=== PATIENT | female | born 1990 | race Caucasian/White ===

== ENCOUNTER 2018-05-28 10:45 | Emergency (ER) | payer SELFPAY ==
[2018-05-28] MEDS ORDERED: NA CHLORIDE 0.9% 1,000 ML ONE (11:25)
[2018-05-28 11:49] LABS: Absolute Lymphocytes (CBC) 0.7 K/uL (0.7-4.9); Absolute Monocytes 0.4 K/uL (0.1-1.3); Absolute Neutrophil 3.9 K/uL (1.8-8.0); Basophils % 0.5 % (0-1.3); Eosinophils % 2.8 % (0-4.4); Hematocrit 38.2 % (36.0-45.0); Lymphocytes % 12.8 % (15.3-44.8); RBC Red Blood Cell Count 4.35 M/uL (3.86-4.86)
[2018-05-28 11:50] LABS: Specific Gravity >= 1.030 (1.005-1.030); Urine Appearance CLOUDY; Urine Blood 3+ (NEG); Urine Color DK YELLOW; Urine Glucose NEGATIVE (NEG); Urine Protein 2+ (NEG); Urine Specific Gravity >=1.030 (1.005-1.030)
[2018-05-28 11:59] LABS: ALT/SGPT 90 U/L (12-78); AST/SGOT 58 U/L (15-37); Albumin 3.9 g/dL (3.4-5.0); Alkaline Phosphatase 59 U/L (45-117); BUN Blood Urea Nitrogen 9 mg/dL (7-18); Bicarbonate 25 mmol/L (21-32); Bilirubin Direct < 0.1 mg/dL (0-0.2); Bilirubin Total 0.3 mg/dL (0.2-1.0); Glucose Level 91 mg/dL (74-106); Lipase 89 U/L (73-393); Protein, Total 8.4 g/dL (6.4-8.2); Sodium Level 140 mmol/L (136-145)
[2018-05-28 12:00] LABS: Urine Bacteria >50 /HPF (<20); Urine Bilirubin 1+ (NEG); Urine Microscopic Reflex ORDER UMIC; Urine RBC >50 /HPF (NONE SEEN)
[2018-05-28 12:01] LABS: Urine Culture Reflex Order NOT NEEDED
--- NOTE | 2018-05-28 12:22 | ER ---
Nurse's Notes [facility] Name: Elin Dubose Age: 27 yrs Sex: Female : 1990 Arrival Date: 05/28/2018 Time: 10:48 Bed 13 Private MD: Diagnosis: Weakness;Syncope and collapse-near;Diarrhea, unspecified;Influenza due to other identified influenza virus-influenza B Presentation: 05/28 10:42 Presenting complaint: EMS states: Pt. was at work when she became dizzy. C/o rb1 generalized weakness and suprapubic pain pain 5/10. Reports that the pt. started her menstrual cycle yesterday. was treated for the flu recently. Vital signs are stable, BGL 127. No medical history. Had gall bladder removed. Transition of care: patient was not received from another setting of care. Onset of symptoms was May 28, 2018. Risk Assessment: Do you want to hurt yourself or someone else? Patient reports no desire to harm self or others. Initial Sepsis Screen: Does the patient meet any 2 criteria? No. Patient's initial sepsis screen is negative. Does the patient have a suspected source of infection? No. Patient's initial sepsis screen is negative. Care prior to arrival: None. 10:42 Method Of Arrival: EMS: [facility] 10:42 Acuity: SHEILA 3 rb1 Triage Assessment: 10:42 General: Appears in no apparent distress. comfortable, Behavior is calm, cooperative, rb1 Denies fever. Pain: Complains of pain in suprapubic area Pain currently is 5 out of 10 on a pain scale. Neuro: Level of Consciousness is awake, alert, obeys commands, Oriented to person, place, time, situation. Cardiovascular: Capillary refill < 3 seconds is brisk in bilateral fingers. Respiratory: Reports cough that is non-productive, Airway is patent Respiratory effort is even, unlabored, Respiratory pattern is regular, symmetrical. GI: Reports diarrhea, nausea. : No signs and/or symptoms were reported regarding the genitourinary system. Derm: Skin is pink, warm \T\ dry. Musculoskeletal: Range of motion: intact in all extremities. 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 - Social history:: Smoking status: Patient/guardian denies using tobacco. - Ebola Screening: : Patient negative for fever greater than or equal to 101.5 degrees Fahrenheit, and additional compatible Ebola Virus Disease symptoms. - Family history:: not pertinent. Screenin:42 Abuse screen: Denies threats or abuse. Nutritional screening: No deficits noted. rb1 10:42 Tuberculosis screening: No symptoms or risk factors identified. Fall Risk None rb1 identified. Assessment: 10:42 General: See triage assessment. rb1 11:42 Reassessment: Patient appears in no apparent distress at this time. No changes from rb1 previously documented assessment. Family at bedside. 12:42 Reassessment: Patient appears in no apparent distress at this time. Patient and/or rb1 family updated on plan of care and expected duration. Pain level reassessed. Patient is alert, oriented x 3, equal unlabored respirations, skin warm/dry/pink. Vital Signs: 10:42 BP 117 / 70; Pulse 70; Resp 16; Temp 98.5(O); Pulse Ox 100% on R/A; Weight 108.86 kg rb1 (R); Height 5 ft. 4 in. (162.56 cm) (R); Pain 5/10; 11:42 BP 113 / 62; Pulse 66; Resp 19; Pulse Ox 100% on R/A; rb1 12:42 BP 116 / 73; Pulse 76; Resp 17; Pulse Ox 98% on R/A; rb1 10:42 Body Mass Index 41.20 (108.86 kg, 162.56 cm) [facility] ED Course: 10:42 Arm band placed on right wrist. rb1 10:42 Patient has correct armband on for positive identification. Bed in low position. Call rb1 light in reach. Side rails up X 1. Pulse ox on. NIBP on. Warm blanket given. 10:48 Patient arrived in ED. rb1 10:48 Eldon Lambert MD is Attending Physician. [facility] 10:53 Triage completed. rb1 11:00 Rajni Olea, RN is Primary Nurse. rb1 11:15 Urine collected: clean catch specimen, blood tinged. dh3 11:18 EKG done, by ED staff, reviewed by Eldon Lambert MD. 3 11:25 Inserted saline lock: 22 gauge in right antecubital area, using aseptic technique. rb1 Blood collected. 11:56 Flu Sent. rb1 13:15 No provider procedures requiring assistance completed. IV discontinued, intact, rb1 bleeding controlled, No redness/swelling at site. Pressure dressing applied. Administered Medications: 11:27 Drug: NS 0.9% 1000 ml Route: IV; Rate: 1 bolus; Site: right antecubital; rb1 12:33 Follow up: IV Status: Completed infusion rb1 13:08 Drug: Zofran 4 mg Route: IVP; Site: right antecubital; rb1 13:14 Follow up: Response: Medication administered at discharge. rb1 13:08 Drug: Tamiflu 75 mg Route: PO; rb1 13:13 Follow up: Response: Medication administered at discharge. rb1 Outcome: 12:22 Discharge ordered by . saji 13:15 Discharged to home ambulatory, with family. rb1 13:15 Condition: stable 13:15 Discharge instructions given to patient, Instructed on discharge instructions, follow up and referral plans. medication usage, Demonstrated understanding of instructions, follow-up care, medications, Prescriptions given X 2. 13:16 Patient left the ED. rb1 Addendum: 05/31/2018 10:31 Addendum: Culture Results: Positive urine culture. No further action required. Other: s s OK per EMILEE Dykes. NO URINARY COMPLAINTS. Signatures: Eldon Lambert MD MD cha Smirch, Shelby RN RN Rajni Moreland RN RN [facility] Merna Harris [facility]
--- NOTE | 2018-05-28 12:23 | EDPHYS ---
Physician Documentation [facility] Name: Elin Dubose Age: 27 yrs Sex: Female : 1990 Arrival Date: 05/28/2018 Time: 10:48 Bed 13 Private MD: ED Physician Eldon Lambert HPI: 05/28 10:56 This 27 yrs old Female presents to ER via EMS with complaints of General saji Weakness. 10:56 The patient presents to the emergency department with nausea, diarrhea. Onset: The saji symptoms/episode began/occurred just prior to arrival, this morning. Possible causes: unknown. The symptoms are aggravated by nothing. The symptoms are alleviated by nothing. The patient has experienced near-syncope, almost passed out, felt dizzy, felt generally weak. Associated signs and symptoms: Pertinent positives: diarrhea. 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 - Social history:: Smoking status: Patient/guardian denies using tobacco. - Ebola Screening: : Patient negative for fever greater than or equal to 101.5 degrees Fahrenheit, and additional compatible Ebola Virus Disease symptoms. - Family history:: not pertinent. ROS: 10:56 Constitutional: Negative for fever, chills, and weight loss, Eyes: Negative for injury, saji pain, redness, and discharge, ENT: Negative for injury, pain, and discharge, Neck: Negative for injury, pain, and swelling, Cardiovascular: Negative for chest pain, palpitations, and edema, Respiratory: Negative for shortness of breath, cough, wheezing, and pleuritic chest pain, Back: Negative for injury and pain, : Negative for injury, bleeding, discharge, and swelling, MS/Extremity: Negative for injury and deformity, Skin: Negative for injury, rash, and discoloration, Psych: Negative for depression, anxiety, suicide ideation, homicidal ideation, and hallucinations, Allergy/Immunology: Negative for hives, rash, and allergies, Endocrine: Negative for neck swelling, polydipsia, polyuria, polyphagia, and marked weight changes, Hematologic/Lymphatic: Negative for swollen nodes, abnormal bleeding, and unusual bruising. 10:56 Abdomen/GI: Positive for diarrhea, abdominal cramps. 10:56 Neuro: Positive for near syncope, weakness. Exam: 10:56 Constitutional: This is a well developed, well nourished patient who is awake, alert, saji and in no acute distress. Head/Face: Normocephalic, atraumatic. Eyes: Pupils equal round and reactive to light, extra-ocular motions intact. Lids and lashes normal. Conjunctiva and sclera are non-icteric and not injected. Cornea within normal limits. Periorbital areas with no swelling, redness, or edema. ENT: Nares patent. No nasal discharge, no septal abnormalities noted. Tympanic membranes are normal and external auditory canals are clear. Oropharynx with no redness, swelling, or masses, exudates, or evidence of obstruction, uvula midline. Mucous membranes moist. Neck: Trachea midline, no thyromegaly or masses palpated, and no cervical lymphadenopathy. Supple, full range of motion without nuchal rigidity, or vertebral point tenderness. No Meningismus. Chest/axilla: Normal chest wall appearance and motion. Nontender with no deformity. No lesions are appreciated. Cardiovascular: Regular rate and rhythm with a normal S1 and S2. No gallops, murmurs, or rubs. Normal PMI, no JVD. No pulse deficits. Respiratory: Lungs have equal breath sounds bilaterally, clear to auscultation and percussion. No rales, rhonchi or wheezes noted. No increased work of breathing, no retractions or nasal flaring. Back: No spinal tenderness. No costovertebral tenderness. Full range of motion. Skin: Warm, dry with normal turgor. Normal color with no rashes, no lesions, and no evidence of cellulitis. MS/ Extremity: Pulses equal, no cyanosis. Neurovascular intact. Full, normal range of motion. Neuro: Awake and alert, GCS 15, oriented to person, place, time, and situation. Cranial nerves II-XII grossly intact. Motor strength 5/5 in all extremities. Sensory grossly intact. Cerebellar exam normal. Normal gait. Psych: Awake, alert, with orientation to person, place and time. Behavior, mood, and affect are within normal limits. 10:56 Abdomen/GI: Inspection: distension, Bowel sounds: normal, Palpation: nontender, Liver: no appreciated palpable abnormalities, Hernia: not appreciated. Vital Signs: 10:42 BP 117 / 70; Pulse 70; Resp 16; Temp 98.5(O); Pulse Ox 100% on R/A; Weight 108.86 kg rb1 (R); Height 5 ft. 4 in. (162.56 cm) (R); Pain 5/10; 11:42 BP 113 / 62; Pulse 66; Resp 19; Pulse Ox 100% on R/A; rb1 12:42 BP 116 / 73; Pulse 76; Resp 17; Pulse Ox 98% on R/A; rb1 10:42 Body Mass Index 41.20 (108.86 kg, 162.56 cm) rb1 MDM: 10:48 Patient medically screened. [facility] 11:01 Data reviewed: vital signs, nurses notes, lab test result(s), EKG. [facility] 05/28 10:53 Order name: Basic Metabolic Panel; Complete Time: 12:20 [facility] 05/28 10:53 Order name: CBC with Diff; Complete Time: 12:20 [facility] 05/28 10:53 Order name: Creatinine for Radiology; Complete Time: 12:20 [facility] 05/28 10:53 Order name: Hepatic Function; Complete Time: 12:20 [facility] 05/28 10:53 Order name: Lipase; Complete Time: 12:20 [facility] 05/28 10:53 Order name: Urine Culture [facility] 05/28 10:53 Order name: EKG; Complete Time: 10:54 [facility] 05/28 11:24 Order name: Urinalysis; Complete Time: 12:20 [facility] 05/28 11:31 Order name: Flu; Complete Time: 12:20 [facility] 05/28 11:36 Order name: Test, Urine; Complete Time: 12:20 [facility] 05/28 12:01 Order name: Urine Microscopic Only; Complete Time: 12:20 [facility] 05/28 10:53 Order name: IV Saline Lock; Complete Time: 11:36 [facility] 05/28 10:53 Order name: Labs collected and sent; Complete Time: 11:36 [facility] 05/28 10:53 Order name: EKG - Nurse/Tech; Complete Time: 11:35 [facility] Administered Medications: 11:27 Drug: NS 0.9% 1000 ml Route: IV; Rate: 1 bolus; Site: right antecubital; rb1 12:33 Follow up: IV Status: Completed infusion rb1 13:08 Drug: Zofran 4 mg Route: IVP; Site: right antecubital; rb1 13:14 Follow up: Response: Medication administered at discharge. rb1 13:08 Drug: Tamiflu 75 mg Route: PO; rb1 13:13 Follow up: Response: Medication administered at discharge. rb1 Disposition: 05/28/18 12:22 Discharged to Home. Impression: Weakness, Syncope and collapse - near, Diarrhea, unspecified, Influenza due to other identified influenza virus - influenza B. - Condition is Stable. - Discharge Instructions: Diarrhea, Adult, Syncope, Weakness, Near-Syncope, Jubt-ef-Vuim, Diarrhea, Adult, Gfcv-ac-Nnyq, Syncope, Xcjl-po-Turv, Weakness, Lkcx-bb-Jjve. - Prescriptions for Zofran 4 mg Oral Tablet - take 1 tablet by ORAL route every 12 hours As needed; 20 tablet. Tamiflu 75 mg Oral Capsule - take 1 tablet by ORAL route every 12 hours for 5 days; 10 tablet. - Medication Reconciliation Form, Thank You Letter, Antibiotic Education, Prescription Opioid Use, Work release form form. - Follow up: Private Physician; When: 2 - 3 days; Reason: Recheck today's complaints, Continuance of care, Re-evaluation by your physician. Signatures: Dispatcher [employer] EDEldon Alexander MD MD cha Barber, Rebecca RN RN rb1 Corrections: (The following items were deleted from the chart) 13:16 12:22 05/28/2018 12:22 Discharged to Home. Impression: Weakness; Syncope and collapse - rb1 near; Diarrhea, unspecified; Influenza due to other identified influenza virus - influenza B. Condition is Stable. Discharge Instructions: Diarrhea, Adult, Syncope, Weakness, Diarrhea, Adult, Gdca-bg-Cchm, Syncope, Ofnb-os-Ywhw, Weakness, Ncln-jc-Abcq, Near-Syncope, [place]-ba-Yzeq. Prescriptions for Zofran 4 mg Oral Tablet - take 1 tablet by ORAL route every 12 hours As needed; 20 tablet. and Forms are Medication Reconciliation Form, Thank You Letter, Antibiotic Education, Prescription Opioid Use. Follow up: Private Physician; When: 2 - 3 days; Reason: Recheck today's complaints, Continuance of care, Re-evaluation by your physician. saji
[2018-05-28] MEDS ORDERED: OSELTAMIVIR 75 MG CAP ONE (13:12)
[2018-05-28] MEDS ORDERED: ONDANSETRON 4 MG/2 ML VIAL ONE (13:12)
[2018-05-28 13:22] VITALS: BP 116/73; O2SAT 98
--- NOTE | 2018-05-29 07:47 | EKG ---
Test Date: 2018-05-28 Test Time: 11:18:55 Reducing Salon Attendant: KHADRA MEASUREMENT RESULTS: Intervals: Rate: 59 ID: [id number] QRSD: 88 QT: 382 QTc: 378 Orange: P: 36 ID: [id number] QRS: 56 T: 30 INTERPRETIVE STATEMENTS: Sinus bradycardia Otherwise normal ECG Compared to ECG 10/21/2010 16:19:19 Sinus rhythm no longer present Sinus arrhythmia no longer present Short ID interval no longer present Electronically Signed On 05-29-18 07:47:00 CDT by Daniel Hansen
== END 2018-05-28 13:16 | disposition home or self-care (01) ==
LOC: ER 10:45
DX: R53.1 Weakness (principal); R55 Syncope and collapse; R19.7 Diarrhea, unspecified; J10.1 Influenza due to other identified influenza virus with other respiratory manifestations
CPT/HCPCS: 36415; 80048; 80076; 81003; 81015; 81025; 83690; 85025; 87077; 87086; 87088; 87186; 87804; 93005; 96361; 96374; 99284; J2405; J7030

== ENCOUNTER 2020-11-02 08:37 | Emergency (ER) | payer BC, SELFPAY ==
[2020-11-02 10:21] LABS: SARS-COV-2 RT PCR NEGATIVE (NEGATIVE)
[2020-11-02] MEDS ORDERED: dexAMETHasone 10 MG/ML VIAL ONE (10:29)
--- NOTE | 2020-11-02 10:37 | ER ---
Nurse's Notes [facility] Name: Elin Dubose Age: 29 yrs Sex: Female : 1990 Arrival Date: 11/02/2020 Time: 08:40 Bed 12 Private MD: Diagnosis: Acute pharyngitis, unspecified Presentation: 11/02 08:46 Chief complaint: Patient states: Sore Throat started yesterday. Low grade fever at [facility]. Hx of frequent Strep throat. Coronavirus screen: Vaccine status: Patient reports receiving the 2nd dose of the covid vaccine. Date March 08, 2020 Client denies travel out of the [place] in the last 14 days. Client indicates they have traveled out of the [place] in the last 14 days. At this time, unable to obtain information related to travel outside the [place] Ebola Screen: Patient negative for fever greater than or equal to 101.5 degrees Fahrenheit, and additional compatible Ebola Virus Disease symptoms Patient denies exposure to infectious person. No symptoms or risks identified at this time. Initial Sepsis Screen: Does the patient meet any 2 criteria? No. Patient's initial sepsis screen is negative. Risk Assessment: Do you want to hurt yourself or someone else?. Onset of symptoms was November 01, 2020. 08:46 Method Of Arrival: Ambulatory [facility] 08:46 Acuity: SHEILA 4 5 Triage Assessment: 08:50 General: Appears in no apparent distress. Pain: Complains of pain in left aspect of ch5 posterior pharynx and right aspect of posterior pharynx. EENT: No deficits noted. Throat is reddened. - Immunization history:: Adult Immunizations up to date, Client reports receiving the 2nd dose of the Covid vaccine. - Social history:: Smoking status: Patient denies any tobacco usage or history of. Screenin:51 Abuse screen: Denies threats or abuse. Denies injuries from another. Nutritional 5 screening: No deficits noted. Tuberculosis screening: No symptoms or risk factors identified. Fall Risk None identified. Assessment: 08:51 Reassessment: No changes from previously documented assessment. General: Appears in no 5 apparent distress. Pain: Complains of pain in left aspect of posterior pharynx and right aspect of posterior pharynx. Respiratory: No deficits noted. Airway is patent Respiratory effort is even, unlabored. 10:00 Reassessment: Awaiting COVID and flu results. Pt is aware of negative strep results. ss Neuro: Level of Consciousness is awake, alert, obeys commands, Oriented to person, place, time, situation. Respiratory: Airway is patent Respiratory effort is even, unlabored, Respiratory pattern is regular, symmetrical. EENT: Nares are clear. Derm: Skin is intact, is healthy with good turgor, Skin is pink, warm \T\ dry. normal. Vital Signs: 08:46 BP 132 / 83; Pulse 80; Resp 18; Temp 98(T); Pulse Ox 99% ; Weight 113.4 kg; Height 5 ch5 ft. 4 in. (162.56 cm); Pain 8/10; 08:51 BP 132 / 83; Pulse 78; Resp 18; Temp 98; Pulse Ox 99% ; Pain 8/10; ch5 08:46 Body Mass Index 42.91 (113.40 kg, 162.56 cm) ch5 ED Course: 08:40 Patient arrived in ED. ds1 08:50 Triage completed. ch5 08:50 Arm band placed on right wrist. ch5 08:51 Bed in low position. Call light in reach. Side rails up X2. Adult w/ patient. ch5 08:51 No provider procedures requiring assistance completed. ch5 08:53 Wade So NP is PHCP. pm1 08:53 Bj Dey MD is Attending Physician. pm1 08:53 Vandana Blackburn MD is Attending Physician. pm1 08:56 Addi Babin, TANESHA is Primary Nurse. ch5 10:41 Patient did not have IV access during this emergency room visit. ss Administered Medications: 10:07 Drug: Decadron (dexamethasone) 10 mg Route: IM; Site: right deltoid; ss 10:42 Follow up: Response: No adverse reaction; Pain is decreased ss Outcome: 10:35 Discharge ordered by . pm1 10:41 Discharged to home ambulatory, with family. ss 10:41 Condition: stable 10:41 Discharge instructions given to patient, Instructed on discharge instructions, follow up and referral plans. Demonstrated understanding of instructions, follow-up care. 10:42 Patient left the ED. ss Signatures: Jie Fagan ds1 Anel Hobson, RN RN ss Wade So, OBSTETRICIAN AND GYNAECOLOGIST OBSTETRICIAN AND GYNAECOLOGIST pm1 Addi Babin, RN RN ch5
--- NOTE | 2020-11-02 10:37 | EDPHYS ---
Physician Documentation [facility] Name: Elin Dubose Age: 29 yrs Sex: Female : 1990 Arrival Date: 11/02/2020 Time: 08:40 Bed 12 Private MD: ED Physician Vandana Blackburn HPI: 11/02 09:51 This 29 yrs old Female presents to ER via Ambulatory with complaints of Sore pm1 Throat. 09:51 The patient presents with sore throat. The patient describes throat pain as raw, pm1 scratchy. Onset: The symptoms/episode began/occurred yesterday. Severity of symptoms: in the emergency department the symptoms are actually worse. Modifying factors: The symptoms are alleviated by nothing, the symptoms are aggravated by swallowing, Patient's oral intake status: good. Associated signs and symptoms: Pertinent negatives cough, fever. The patient has experienced similar episodes in the past, multiple times. The patient has not recently seen a physician. - Immunization history:: Adult Immunizations up to date, Client reports receiving the 2nd dose of the Covid vaccine. - Social history:: Smoking status: Patient denies any tobacco usage or history of. ROS: 09:51 Cardiovascular: Negative for chest pain, palpitations, and edema, Respiratory: Negative pm1 for shortness of breath, cough, wheezing, and pleuritic chest pain, Abdomen/GI: Negative for abdominal pain, nausea, vomiting, diarrhea, and constipation, MS/Extremity: Negative for injury and deformity, Skin: Negative for injury, rash, and discoloration, Neuro: Negative for headache, weakness, numbness, tingling, and seizure. 09:51 Constitutional: Positive for Subjective fever. 09:51 ENT: Positive for sore throat, Negative for ear pain. 09:51 All other systems are negative. Exam: 09:51 Constitutional: This is a well developed, well nourished patient who is awake, alert, pm1 and in no acute distress. Head/Face: Normocephalic, atraumatic. 09:51 Skin: Warm, dry with normal turgor. Normal color with no rashes, no lesions, and no evidence of cellulitis. MS/ Extremity: Pulses equal, no cyanosis. Neurovascular intact. Full, normal range of motion. 09:51 Eyes: Exam is negative for acute changes. 09:51 ENT: External ear(s): are unremarkable, Ear canal(s): are normal, TM's: are normal, Mouth: no acute changes, Lips: normal, moist, Oral mucosa: normal, pink and intact, moist, Posterior pharynx: Tonsils: bilaterally enlarged, with erythema, no exudate, no ulcerations, peritonsillar mass, is not appreciated. 09:51 Cardiovascular: Rate: normal, Rhythm: regular, Pulses: no pulse deficits are appreciated. 09:51 Respiratory: Exam negative for acute changes, respiratory distress, shortness of breath. 09:51 Neuro: Exam negative for acute changes, Orientation: is normal, Mentation: is normal, Motor: is normal, moves all fours. Vital Signs: 08:46 BP 132 / 83; Pulse 80; Resp 18; Temp 98(T); Pulse Ox 99% ; Weight 113.4 kg; Height 5 ch5 ft. 4 in. (162.56 cm); Pain 8/10; 08:51 BP 132 / 83; Pulse 78; Resp 18; Temp 98; Pulse Ox 99% ; Pain 8/10; ch5 08:46 Body Mass Index 42.91 (113.40 kg, 162.56 cm) ch5 MDM: 09:21 Patient medically screened. pm1 10:34 Data reviewed: vital signs. Data interpreted: Pulse oximetry: on room air is 99 %. pm1 Interpretation: normal. 10:34 Counseling: I had a detailed discussion with the patient and/or guardian regarding: the pm1 historical points, exam findings, and any diagnostic results supporting the discharge/admit diagnosis, lab results, the need for outpatient follow up, to return to the emergency department if symptoms worsen or persist or if there are any questions or concerns that arise at home. 11/02 08:55 Order name: Strep; Complete Time: 09:52 pm1 11/02 09:51 Order name: Throat Culture ED[facility] 11/02 10:22 Order name: COVID-19/FLU A+B; Complete Time: 10:34 ED[facility] 11/02 08:55 Order name: Droplet/Contact Precautions; Complete Time: 08:57 pm1 11/02 08:55 Order name: Labs collected and sent; Complete Time: 08:57 pm1 Administered Medications: 10:07 Drug: Decadron (dexamethasone) 10 mg Route: IM; Site: right deltoid; ss 10:42 Follow up: Response: No adverse reaction; Pain is decreased ss Disposition Summary: 11/02/20 10:35 Discharge Ordered Location: Home pm1 Problem: new pm1 Symptoms: have improved pm1 Condition: Stable pm1 Diagnosis - Acute pharyngitis, unspecified pm1 Followup: pm1 - With: Emergency Department - When: As needed - Reason: Worsening of condition Followup: pm1 - With: Private Physician - When: 2 - 3 days - Reason: Recheck today's complaints, Continuance of care, Re-evaluation by your physician Discharge Instructions: - Discharge Summary Sheet pm1 - Pharyngitis pm1 Forms: - Work release form ss - Medication Reconciliation Form pm1 - Thank You Letter pm1 - Antibiotic Education pm1 - Prescription Opioid Use pm1 Addendum: 11/07/2020 04:38 Co-signature as Attending Physician, Vandana Blackburn MD. m a2 Signatures: Dispatcher [employer] EDMS Anel Hobson RN RN Wade So, TRUCKER TRUCKER pm1 Vandana Blackburn MD MD tn2 Addi Babin RN RN ch5 Corrections: (The following items were deleted from the chart) 11/02 09:30 08:55 CORONAVIRUS+MR.LAB.BRZ ordered. EDMS EDMS 09:31 08:55 Influenza Screen (A \T\ B)+BA.LAB.BRZ ordered. EDMS EDMS
[2020-11-02 11:08] VITALS: BP 132/83; TEMP 98; O2SAT 99
== END 2020-11-02 10:42 | disposition home or self-care (01) ==
LOC: ER 08:37
DX: J02.9 Acute pharyngitis, unspecified (principal); Z20.822 Contact with and (suspected) exposure to COVID-19
CPT/HCPCS: 0240U; 87070; 87081; 96372; 99283; J1100

== ENCOUNTER 2020-12-08 08:37 | Emergency (ER) | payer SELFPAY ==
[2020-12-08 09:02] LABS: Urine Blood Negative (Negative); Urine Glucose Negative (Negative); Urine Protein Negative (Negative); Urine Specific Gravity >=1.030 (1.005-1.030); Urine pH 5.5 (5.0-7.0)
--- NOTE | 2020-12-08 09:49 | RAD REPORT ---
EXAM DESCRIPTION: RAD - Wrist Left 3 View - 12/08/2020 9:36 am CLINICAL HISTORY: wrist pain, no trauma history specified COMPARISON: No comparisons FINDINGS: No fracture is identified. There is no dislocation or periosteal reaction noted. No foreig n body or other soft tissue abnormality. IMPRESSION: Negative left wrist examination.
--- NOTE | 2020-12-08 09:59 | EDPHYS ---
Physician Documentation [facility] Name: Elin Dubose Age: 30 yrs Sex: Female : 1990 Arrival Date: 12/08/2020 Time: 08:39 Bed 10 Private MD: Eldon Arce HPI: 12/08 08:50 This 30 yrs old Female presents to ER via Ambulatory with complaints of Wrist jmm Pain. 08:50 The patient or guardian reports pain. Onset: The symptoms/episode began/occurred jmm gradually, 1 week(s) ago. Modifying factors: The symptoms are alleviated by nothing, the symptoms are aggravated by movement. Associated signs and symptoms: Pertinent negatives: fever. This is a 30-year-old female with no chronic conditions presents emerged part with complaints of left wrist pain which has been ongoing for the past week but worsening over the past 2 days. Patient states that she does have radiation of pain to her left fifth finger. Patient denies known injury but states she does have heavy lifting at her job.. Historical: - Allergies: 08:54 No Known Allergies; jd3 - Home Meds: 08:54 None [Active]; jd3 - PMHx: 08:54 None; jd3 - PSHx: 08:54 Cholecystectomy; jd3 - Immunization history:: Adult Immunizations up to date. - Social history:: Smoking status: Patient reports the use of cigarette tobacco products, denies chronic smoking, but will smoke occasionally. ROS: 08:50 Constitutional: Negative for fever, chills, and weight loss, Cardiovascular: Negative jmm for chest pain, palpitations, and edema, Respiratory: Negative for shortness of breath, cough, wheezing, and pleuritic chest pain. 08:50 MS/extremity: Positive for pain. 08:50 All other systems are negative. Exam: 08:50 Constitutional: This is a well developed, well nourished patient who is awake, alert, jmm and in no acute distress. Head/Face: atraumatic. Eyes: EOMI, no conjunctival erythema appreciated ENT: Moist Mucus Membranes Neck: Trachea midline, Supple Chest/axilla: Normal chest wall appearance and motion. Cardiovascular: Regular rate and rhythm. No edema appreciated Respiratory: Normal respirations, no respiratory distress appreciated Abdomen/GI: Non distended, soft Back: Normal ROM Skin: General appearance color normal 08:50 Musculoskeletal/extremity: The left distal ulnar region tender to palpation, full range of motion appreciated, full radial pulse, compartments are soft, neurovascular intact. 08:50 Skin: Appearance: Color: normal in color. 08:50 Neuro: Orientation: is normal, Mentation: is normal, Memory: is normal. 08:50 Psych: Behavior/mood is pleasant, cooperative. Vital Signs: 08:54 BP 142 / 76; Pulse 69; Resp 19 S; Temp 98.4(O); Pulse Ox 100% on R/A; Weight 108.86 kg jd3 (R); Height 5 ft. 4 in. (162.56 cm) (R); Pain 7/10; 08:54 Body Mass Index 41.20 (108.86 kg, 162.56 cm) jd3 MDM: 08:50 Patient medically screened. [facility] 09:58 Data reviewed: vital signs, nurses notes. Counseling: I had a detailed discussion with joel the patient and/or guardian regarding: the historical points, exam findings, and any diagnostic results supporting the discharge/admit diagnosis, the need for outpatient follow up, to return to the emergency department if symptoms worsen or persist or if there are any questions or concerns that arise at home. 12/08 09:02 Order name: Urine Dipstick-Ancillary; Complete Time: 09:14 [facility] 12/08 09:03 Order name: Urine --Ancillary (enter results) bd 12/08 09:06 Order name: Wrist Left (3 View) XRAY; Complete Time: 09:52 [facility] 12/08 09:57 Order name: Wrist Splint; Complete Time: 10:20 [facility] Administered Medications: No medications were administered Disposition: 09:58 Chart complete. [facility] Disposition Summary: 12/08/20 09:59 Discharge Ordered Location: Home [facility] Condition: Stable [facility] Diagnosis - Pain in left wrist [facility] Followup: [facility] - With: Rob Carolina MD - When: 2 - 3 days - Reason: Recheck today's complaints, Continuance of care, Re-evaluation by your physician Discharge Instructions: - Discharge Summary Sheet [facility] - Wrist Pain, Adult [facility] Forms: - Medication Reconciliation Form [facility] - Thank You Letter [facility] - Antibiotic Education [facility] - Prescription Opioid Use [facility] - Work release form iw Prescriptions: - Ibuprofen 800 mg Oral Tablet - take 1 tablet by ORAL route every 8 hours As needed take with food; 30 tablet; walker Refills: 0, Product Selection Permitted Addendum: 12/09/2020 11:32 Co-signature as Attending Physician, Eldon Lambert MD I agree with the assessment and c simmons plan of care. Signatures: Dispatcher [employer] Eldon Atkins MD MD cha Mickail, Joel, PA PA jmm Davies, Jonathon RN RN jd3
--- NOTE | 2020-12-08 09:59 | ER ---
Nurse's Notes [facility] Name: Elin Dubose Age: 30 yrs Sex: Female : 1990 Arrival Date: 12/08/2020 Time: 08:39 Bed 10 [facility] MD: Diagnosis: Pain in left wrist Presentation: 12/08 08:52 Chief complaint: Patient states: "last week I started having left wrist pain that here jd3 in the last couple of days has been coming down into my pinky.". Coronavirus screen: At this time, the client does not indicate any symptoms associated with coronavirus-19. Ebola Screen: Patient negative for fever greater than or equal to 101.5 degrees Fahrenheit, and additional compatible Ebola Virus Disease symptoms. Initial Sepsis Screen: Does the patient meet any 2 criteria? No. Patient's initial sepsis screen is negative. Does the patient have a suspected source of infection? No. Patient's initial sepsis screen is negative. Risk Assessment: Do you want to hurt yourself or someone else? Patient reports no desire to harm self or others. Onset of symptoms was December 01, 2020. 08:52 Method Of Arrival: Ambulatory jd3 08:52 Acuity: SHEILA 3 jd3 Historical: - Allergies: 08:54 No Known Allergies; jd3 - Home Meds: 08:54 None [Active]; jd3 - PMHx: 08:54 None; jd3 - PSHx: 08:54 Cholecystectomy; jd3 - Immunization history:: Adult Immunizations up to date. - Social history:: Smoking status: Patient reports the use of cigarette tobacco products, denies chronic smoking, but will smoke occasionally. Screenin:57 Abuse screen: Denies threats or abuse. Nutritional screening: No deficits noted. jd3 Tuberculosis screening: No symptoms or risk factors identified. Fall Risk Ambulatory Aid- None/Bed Rest/Nurse Assist (0 pts). Gait- Normal/Bed Rest/Wheelchair (0 pts) Mental Status- Oriented to own ability (0 pts). Total Almonte Fall Scale indicates No Risk (0-24 pts). Assessment: 08:56 General: Appears in no apparent distress. comfortable, Behavior is calm, cooperative, jd3 appropriate for age. Pain: Complains of pain in left wrist Pain radiates to medial aspect of left hand Quality of pain is described as aching, tender. Neuro: Level of Consciousness is awake, alert, obeys commands, Oriented to person, place, time, situation. Cardiovascular: Denies chest pain, Capillary refill < 3 seconds Patient's skin is warm and dry. Respiratory: Airway is patent Respiratory effort is even, unlabored, Respiratory pattern is regular, symmetrical, Denies cough, shortness of breath. GI: No signs and/or symptoms were reported involving the gastrointestinal system. : No signs and/or symptoms were reported regarding the genitourinary system. EENT: No signs and/or symptoms were reported regarding the EENT system. Derm: Skin is intact, Skin is dry, Skin is normal, Skin temperature is warm. Musculoskeletal: Circulation, motion, and sensation intact. Range of motion: limited in left wrist. Vital Signs: 08:54 BP 142 / 76; Pulse 69; Resp 19 S; Temp 98.4(O); Pulse Ox 100% on R/A; Weight 108.86 kg jd3 (R); Height 5 ft. 4 in. (162.56 cm) (R); Pain 7/10; 08:54 Body Mass Index 41.20 (108.86 kg, 162.56 cm) jd3 ED Course: 08:39 Patient arrived in ED. ds1 08:47 Tony Alberts PA is PHCP. [facility] 08:47 Eldon Lambert MD is Attending Physician. jmm 08:52 Griffin Rodrigez, TANESHA is Primary Nurse. jd3 08:54 Triage completed. jd3 08:55 Arm band placed on. jd3 08:57 Patient has correct armband on for positive identification. Bed in low position. Call j light in reach. Side rails up X 1. Adult w/ patient. Pulse ox on. NIBP on. 09:36 Wrist Left (3 View) XRAY In Process Unspecified. EDMS 09:58 Rob Carolina MD is Referral Physician. [facility] 10:21 Urine --Ancillary (enter results) Sent. 5 10:21 Velcro wrist splint applied to left wrist. [facility] 10:25 No provider procedures requiring assistance completed. Patient did not have IV access as6 during this emergency room visit. Administered Medications: No medications were administered Outcome: 09:59 Discharge ordered by . m 10:25 Discharged to home ambulatory, with significant other. as6 10:25 Condition: stable 10:25 Discharge instructions given to patient, Instructed on discharge instructions, follow up and referral plans. medication usage, Demonstrated understanding of instructions, follow-up care, medications, splint care, Prescriptions given X 1. 10:26 Patient left the ED. as6 Signatures: Dispatcher [employer] EDMS Tony Alberts PA PA jmm Sanford, Demi dsKaryna Tidwell 5 Griffin Rodrigez RN RN jd3 Jurgen Edwards RN RN as6
[2020-12-08 10:34] VITALS: BP 142/76; TEMP 98.4; O2SAT 100
[2020-12-08 13:02] LABS: Urine Specific Gravity/Preg >1.030 (1.005-1.030)
--- OUTSIDE RECORDS SUMMARY | 2020-12-20 04:33 | XMS REPORT | Continuity of Care Document ---
:1990 Author Organization [facility] t Address [address] [place] [address] [address] [place] [address] Care Team Providers Name Role Phone PRINCESS Attending Clinician Unavailable MONTOYA, R Attending Clinician Unavailable MONTOYA, R Admitting Clinician Unavailable Payers Payer Name Policy Type Policy Number Effective Date Expiration Date [facility] [id number] 2015 PPO/POS 00:00:00 [facility] [id number] 2018 [facility] 00:00:00 Problems This patient has no known problems. Allergies, Adverse Reactions, Alerts Allergy Allergy Status Severity Reaction(s) Onset Inactive Treating Comm ents Source Name Type Date Date Clinician NO KNOWN Drug Active [facility] Medications This patient has no known medications. Procedures This patient has no known procedures. Encounters Start End Encounter Admission Attending Care Care Encounter Source Date/Time Date/Time Type Type Clinicians Facility Department ID 2019-10-29 2019-10-29 Outpatient R PRINCESS [facility] [id number] Univers 09:00:00 09:00:00 SERGIO [id number] [facility] 2019-10-29 2019-10-29 Outpatient R PRINCESS [facility] [id number] Univers 09:00:00 09:00:00 SERGIO [facility] 2019-08-28 2019-08-28 Outpatient R PRINCESS [facility] [id number] Univers 08:00:00 08:00:00 SERGIO [id number] [facility] 2019-08-08 2019-08-08 Outpatient R [facility] [id number] Univers 11:00:00 11:00:00 [id number] [facility] 2019-08-08 2019-08-08 Outpatient R [facility] [id number] Univers 11:00:00 11:00:00 [facility] 2019-08-03 2019-08-03 Outpatient R PRINCESS [facility] [id number] Univers 15:30:00 15:30:00 SERGIO [facility] 2019-02-12 2019-02-[address] [facility] [id number] Univers 14:07:19 15:56:00 ALEX [facility] Results This patient has no known results.
== END 2020-12-08 10:26 | disposition home or self-care (01) ==
LOC: ER 08:37
DX: M25.532 Pain in left wrist (principal); F17.210 Nicotine dependence, cigarettes, uncomplicated
CPT/HCPCS: 81003; 81025; 99284

== ENCOUNTER 2021-02-17 20:54 | Emergency (ER) | payer SELFPAY ==
--- OUTSIDE RECORDS SUMMARY | 2021-02-17 20:56 | XMS REPORT | Continuity of Care Document ---
:1990 Author Organization [facility] t Address [address] [place] [address] Care Team Providers Name Role Phone PCP, DOES NOT HAVE A Primary Care Physician Unavailable PRINCESS Attending Clinician Unavailable Mario MONTOYA Attending Clinician Unavailable Mario MONTOYA Admitting Clinician Unavailable Payers Payer Name Policy Type Policy Number Effective Date Expiration Date [facility] [id number] 2015 PPO/POS 00:00:00 [facility] [id number] 2018 [facility] 00:00:00 Problems This patient has no known problems. Allergies, Adverse Reactions, Alerts Allergy Allergy Status Severity Reaction(s) Onset Inactive Treating Comm ents Source Name Type Date Date Clinician NO KNOWN Drug Active [facility] ALLERGIE Class [facility] Medications This patient has no known medications. Procedures This patient has no known procedures. Encounters Start End Encounter Admission Attending Care Care Encounter Source Date/Time Date/Time Type Type Clinicians Facility Department ID 2019-10-29 2019-10-29 Outpatient Mario SÁNCHEZ [facility] [id number] Univers 09:00:00 09:00:[id number] [facility] 2019-10-29 2019-10-29 Outpatient Mario SÁNCHEZ [facility] [id number] Univers 09:00:00 09:00:[address] [facility] 2019-08-28 2019-08-28 Outpatient Mario SÁNCHEZ [facility] [id number] Univers 08:00:00 08:00:[id number] [facility] 2019-08-08 2019-08-08 Outpatient R [facility] [id number] Univers 11:00:00 11:00:[address] [facility] 2019-08-08 2019-08-08 Outpatient R [facility] [id number] Univers 11:00:00 11:00:[address] [facility] 2019-08-03 2019-08-03 [facility] [id number] Univers 15:30:00 15:30:[address] [facility] 2019-02-12 2019-02-12 Emergency X [facility] ERT [id number] Univers 14:07:19 15:56:[address] [facility] Results This patient has no known results.
[2021-02-17 22:58] LABS: SARS-COV-2 RT PCR NEGATIVE (NEGATIVE)
--- NOTE | 2021-02-17 23:06 | ER ---
Nurse's Notes [facility] Name: Elin Dubose Age: 30 yrs Sex: Female : 1990 Arrival Date: 02/17/2021 Time: 20:55 Bed 9 Private MD: Diagnosis: Otitis media, unspecified, bilateral;Cough Presentation: 02/17 21:27 Chief complaint: Patient states: About 2 days ago my left started hurting, I put a heat vc1 compress on the back on my ear and it started draining and felt better, today my right ear started hurting. If I move to fast or bend over I feel lightheaded. Coronavirus screen: Vaccine status: Patient reports receiving the 2nd dose of the covid vaccine. [place] Client denies travel out of the [place] in the last 14 days. congestion, cough unrelated to allergies, headache, Client presents with at least one sign or symptom that may indicate coronavirus-19. Standard/surgical mask placed on the client. Ebola Screen: No symptoms or risks identified at this time. Initial Sepsis Screen: Does the patient meet any 2 criteria? No. Patient's initial sepsis screen is negative. Does the patient have a suspected source of infection? No. Patient's initial sepsis screen is negative. Risk Assessment: Do you want to hurt yourself or someone else? Patient reports no desire to harm self or others. Onset of symptoms was February 15, 2021. 21:27 Method Of Arrival: Ambulatory vc1 21:27 Acuity: SHEILA 3 vc1 Triage Assessment: 21:36 General: Appears in no apparent distress. ill, Behavior is calm, cooperative, vc1 appropriate for age. Pain: Complains of pain in right ear and left ear Pain currently is 4 out of 10 on a pain scale. EENT: Reports decreased hearing nasal congestion pain in right ear and left ear. Neuro: No deficits noted. Cardiovascular: No deficits noted. Respiratory: Reports cough that is non-productive, Airway is patent Respiratory effort is even, unlabored, Respiratory pattern is regular, symmetrical. 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 - Social history:: Smoking status: Patient denies any tobacco usage or history of. Screenin:29 Abuse screen: Denies threats or abuse. Nutritional screening: No deficits noted. Fall al4 Risk None identified. 23:29 Tuberculosis screening: No symptoms or risk factors identified. al4 Assessment: 23:29 General: Appears in no apparent distress. comfortable, Behavior is calm, cooperative, al4 appropriate for age, Reports L ear pain 8/10 and Right ear pain 0/10, with a productive cough, and congestion. Denies fever, N/V/D, and SOB. Patient states she does have some dizziness. Pain: Complains of pain in left ear Pain currently is 8 out of 10 on a pain scale. Neuro: Level of Consciousness is awake, alert, obeys commands, Oriented to person, place, time, situation. Cardiovascular: Capillary refill < 3 seconds Patient's skin is warm and dry. Respiratory: Airway is patent Respiratory effort is even, unlabored, Respiratory pattern is regular, symmetrical. GI: No signs and/or symptoms were reported involving the gastrointestinal system. : No signs and/or symptoms were reported regarding the genitourinary system. EENT: Reports nasal congestion L ear pain . Derm: No signs and/or symptoms reported regarding the dermatologic system. Musculoskeletal: No signs and/or symptoms reported regarding the musculoskeletal system. Vital Signs: 21:27 BP 123 / 66; Pulse 83; Resp 18; Temp 98.1; Pulse Ox 98% on R/A; Weight 108.86 kg; vc1 Height 5 ft. 4 in. (162.56 cm); Pain 6/10; 23:29 BP 121 / 75; Pulse 65; Resp 18; Pulse Ox 100% on R/A; al4 21:27 Body Mass Index 41.20 (108.86 kg, 162.56 cm) vc1 ED Course: 20:55 Patient arrived in ED. kc5 21:05 Eldon Smith PA is PHCP. cp 21:05 Ramana Parnell MD is Attending Physician. cp 21:33 Triage completed. vc1 21:37 Arm band placed on left wrist. Patient placed in an exam room. vc1 23:03 Elenita Harris MD is Referral Physician. cp 23:29 Leo Stark is Primary Nurse. al4 23:29 Patient has correct armband on for positive identification. Bed in low position. Call al4 light in reach. Side rails up X 1. Door closed. 23:29 No provider procedures requiring assistance completed. Patient did not have IV access al4 during this emergency room visit. Administered Medications: No medications were administered Outcome: 23:05 Discharge ordered by MD. cp 23:29 Discharged to home ambulatory, with friend. al4 23:29 Condition: stable 23:29 Discharge instructions given to patient, Instructed on discharge instructions, follow up and referral plans. medication usage, Demonstrated understanding of instructions, follow-up care, medications, Prescriptions given X 3. 23:33 Patient left the ED. al4 Signatures: Elodn Smith PA PA cp Clark, Kasey kc5 Leo Stark al4 Josefa De Jesus RN RN vc1 Corrections: (The following items were deleted from the chart) 23:32 23:29 Nutritional screening: No deficits noted. al4 al4
--- NOTE | 2021-02-17 23:06 | EDPHYS ---
Physician Documentation [facility] Name: Elin Dubose Age: 30 yrs Sex: Female : 1990 Arrival Date: 02/17/2021 Time: 20:55 Bed 9 Private MD: ED Physician Ramana Parnell HPI: 02/17 22:00 This 30 yrs old Female presents to ER via Ambulatory with complaints of Ear Pain, cp Dizziness. 22:00 The patient presents with pain, that is acute. The complaints affect the left ear and cp right ear. Onset: The symptoms/episode began/occurred 2 day(s) ago. 22:00 Associated signs and symptoms: Pertinent positives: history of drainage from left ear, cp dizziness, cough, Pertinent negatives: lightheadedness, rhinorrhea, sinus trouble, sore throat, vomiting, headache. 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 - Social history:: Smoking status: Patient denies any tobacco usage or history of. ROS: 22:05 ENT: Positive for ear pain, Negative for sinus congestion, sinus pain, sore throat, cp difficulty swallowing, difficulty handling secretions. 22:05 Constitutional: Negative for body aches, chills, fever, poor PO intake. cp 22:05 Respiratory: Positive for cough, with no reported sputum, Negative for shortness of breath, wheezing. 22:05 Abdomen/GI: Negative for abdominal pain, nausea, vomiting, and diarrhea. 22:05 Skin: Negative for rash. 22:05 Neuro: Positive for dizziness, Negative for altered mental status, headache, weakness. 22:05 All other systems are negative. Exam: 22:10 Constitutional: The patient appears in no acute distress, alert, awake, non-toxic, well cp developed, well nourished. 22:10 Head/Face: Normocephalic, atraumatic. cp 22:10 Eyes: Periorbital structures: appear normal, Conjunctiva: normal, no exudate, no injection, Sclera: no appreciated abnormality, Lids and lashes: appear normal, bilaterally. 22:10 ENT: External ear(s): are unremarkable, Ear canal(s): are normal, clear, TM's: bulging, bilaterally, erythema, that is marked, bilaterally, Nose: is normal, Mouth: Lips: moist, Oral mucosa: pink and intact, moist, Posterior pharynx: Airway: no evidence of obstruction, patent, Tonsils: are normal in appearance, erythema, is not appreciated, exudate, is not appreciated. 22:10 Neck: ROM/movement: is normal, is supple, without pain, no range of motions limitations, Lymph nodes: no appreciated lymphadenopathy. 22:10 Chest/axilla: Inspection: normal. 22:10 Cardiovascular: Rate: normal. 22:10 Respiratory: the patient does not display signs of respiratory distress, Respirations: normal, no use of accessory muscles, no retractions, labored breathing, is not present, Breath sounds: decreased breath sounds, are not appreciated, stridor, is not appreciated, + upper airway congestion. wheezing: is not appreciated. 22:10 Abdomen/GI: Exam negative for discomfort, distension, guarding, Inspection: abdomen appears normal. Vital Signs: 21:27 BP 123 / 66; Pulse 83; Resp 18; Temp 98.1; Pulse Ox 98% on R/A; Weight 108.86 kg; vc1 Height 5 ft. 4 in. (162.56 cm); Pain 6/10; 23:29 BP 121 / 75; Pulse 65; Resp 18; Pulse Ox 100% on R/A; al4 21:27 Body Mass Index 41.20 (108.86 kg, 162.56 cm) vc1 MDM: 21:52 Patient medically screened. cp 23:05 Data reviewed: vital signs, nurses notes. cp 23:05 Differential diagnosis: otitis media, otitis externa, ruptured TM, cerumen impaction, cp barotrauma . Counseling: I had a detailed discussion with the patient and/or guardian regarding: the historical points, exam findings, and any diagnostic results supporting the discharge/admit diagnosis, to return to the emergency department if symptoms worsen or persist or if there are any questions or concerns that arise at home. 02/17 21:35 Order name: COVID-19/FLU A+B (Document "Date of Onset" if Symptomatic); Complete Time: vc1 23:03 Administered Medications: No medications were administered Disposition: 23:15 Chart complete. cp 02/18 10:07 Co-signature as Attending Physician, Ramana Parnell MD I agree with the assessment and sp3 plan of care. Disposition Summary: 02/17/21 23:05 Discharge Ordered Location: Home cp Problem: new cp Symptoms: are unchanged cp Condition: Stable cp Diagnosis - Otitis media, unspecified, bilateral cp - Cough cp Followup: cp - With: Elenita Harris MD - When: 1 week - Reason: Recheck today's complaints Discharge Instructions: - Discharge Summary Sheet cp - Otitis Media, Adult cp - Cough, Adult cp - Form - Excuse from Work, School, or Physical Activity cp Forms: - Medication Reconciliation Form cp - Thank You Letter cp - Antibiotic Education cp - Prescription Opioid Use cp Prescriptions: - Augmentin 875-125 mg Oral Tablet - take 1 tablet by ORAL route every 12 hours for 10 days; 20 tablet; Refills: 0, cp Product Selection Permitted - Tessalon Perles 100 mg Oral Capsule - take 2 capsule by ORAL route every 8 hours As needed; 30 capsule; Refills: 0, cp Product Selection Permitted - Medrol (Trev) 4 mg Oral Tablets, Dose Pack - take 1 tablet by ORAL route as directed - follow package instructions; 1 cp packet; Refills: 0, Product Selection Permitted Signatures: Dispatcher [employer] EDEldon Keane PA PA cp Ramana Parnell MD MD sp3 Josefa De Jesus, RN RN vc1
[2021-02-17 23:51] VITALS: TEMP 98.1
[2021-02-17 23:55] VITALS: BP 121/75; O2SAT 100
== END 2021-02-17 23:33 | disposition home or self-care (01) ==
LOC: ER 20:54
DX: H66.93 Otitis media, unspecified, bilateral (principal); R05.9 Cough, unspecified; Z20.822 Contact with and (suspected) exposure to COVID-19
CPT/HCPCS: 0240U; 99282

== ENCOUNTER 2021-09-23 08:03 | Emergency (ER) | payer BC, SELFPAY ==
--- OUTSIDE RECORDS SUMMARY | 2021-09-23 08:06 | XMS REPORT | Continuity of Care Document ---
:1990 Author Organization [facility] t Address [address] [place] [address] Care Team Providers Name Role Phone PCP, PATIENT DOES NOT HAVE A Primary Care Physician UnavailSERIGO Juárez Attending Clinician Unavailable ALEX MONTOYA Attending Clinician Unavailable ALEX MONTOYA Admitting Clinician Unavailable Payers Payer Name Policy Type Policy Number Effective Date Expiration Date [facility] [id number] 2015 PPO/POS 00:00:00 [facility] [id number] 2018 [facility] 00:00:00 Problems This patient has no known problems. Allergies, Adverse Reactions, Alerts Allergy Allergy Status Severity Reaction(s) Onset Inactive Treating Comm ents Source Name Type Date Date Clinician NO KNOWN Drug Active [facility] ALLERGIE Class [facility] Medications This patient has no known medications. Procedures This patient has no known procedures. Encounters Start End Encounter Admission Attending Care Care Encounter Source Date/Time Date/Time Type Type Clinicians Facility Department ID 2019-10-29 2019-10-29 Outpatient [facility] [id number] Univers 09:00:00 09:00:00 SERGIO [id number] [facility] 2019-10-29 2019-10-29 Outpatient [facility] [id number] [facility] 09:00:00 09:00:00 SERGIO [facility] 2019-08-28 2019-08-28 Outpatient [facility] [id number] Univers 08:00:00 08:00:00 SERGIO [id number] [facility] 2019-08-08 2019-08-08 Outpatient R [facility] [id number] Univers 11:00:00 11:00:00 [id number] [facility] 2019-08-08 2019-08-08 Outpatient R [facility] [id number] Univers 11:00:00 11:00:00 [facility] 2019-08-03 2019-08-03 [facility] [id number] Univers 15:30:00 15:30:00 SERGIO [facility] 2019-02-12 2019-02-12 Emergency X JAN, [facility] ERT [id number] Univers 14:07:19 15:56:00 ALEX [facility] Results This patient has no known results.
[2021-09-23 08:54] LABS: Absolute Lymphocytes (CBC) 0.3 K/uL (0.7-4.9); Hematocrit 39.8 % (36.0-45.0); Lymphocytes % 3.3 % (15.3-44.8); MCV 88.3 fL (80-100); MPV 8.2 fL (7.6-11.3)
[2021-09-23 09:08] LABS: Albumin 3.9 g/dL (3.4-5.0); Bilirubin Total 0.6 mg/dL (0.2-1.0); Potassium 3.9 mmol/L (3.5-5.1); Protein, Total 8.2 g/dL (6.4-8.2)
[2021-09-23] MEDS ORDERED: FAMOTIDINE 20 MG/2 ML VIAL IV ONE (09:26)
[2021-09-23] MEDS ORDERED: ONDANSETRON 4 MG/2 ML VIAL ONE (09:26)
[2021-09-23 09:29] LABS: Urine Blood 3+ (Negative); Urine Glucose Negative (Negative); Urine Protein Trace (Negative); Urine Specific Gravity >=1.030 (1.005-1.030); Urine pH 5.5 (5.0-7.0)
[2021-09-23 09:37] LABS: Blood Morphology Comment NOT SEEN (NOT SEEN); Platelet Estimate ADEQ; White Blood Cell Scan OK (OK)
--- NOTE | 2021-09-23 09:46 | RAD REPORT ---
EXAM DESCRIPTION: CTAbdomen Pelvis W Contrast - 09/23/2021 9:36 am CLINICAL HISTORY: Abdominal pain. sdf COMPARISON: No comparisons TECHNIQUE: Biphasic CT imaging of the abdomen and pelvis was performed with 100 ml non-ionic IV cont rast. All CT scans are performed using dose optimization technique as appropriate and may include automated exposure control or mA/KV adjustment according to patient size. FINDINGS: The lung bases are clear.Cholecystectomy clips. The liver, spleen, pancreas, adrenal glands and kidneys are within normal limits. No bowel obstruction, free air, free fluid or abscess. The appendix is normal. No evidence of signi ficant lymphadenopathy. No suspicious bony findings. IMPRESSION: No acute intra-abdominal or pelvic finding.
--- NOTE | 2021-09-23 09:54 | EDPHYS ---
Physician Documentation [facility] Name: Elin Dubose Age: 30 yrs Sex: Female : 1990 Arrival Date: 09/23/2021 Time: 08:06 Bed 23 Private MD: ED Physician Rob Torres HPI: 09/23 09:50 This 30 yrs old Female presents to ER via Ambulatory with complaints of jl9 Vomiting/Diarrhea, Flank Pain. 09:50 The patient presents to the emergency department with nausea, vomiting, abdominal pain, jl9 of the epigastric area, described as burning, and does not radiate. Onset: The symptoms/episode began/occurred last night. Possible causes: unknown. The symptoms are aggravated by nothing. The symptoms are alleviated by nothing. Associated signs and symptoms: Pertinent positives: belching. Severity of symptoms: Pain is currently a 3 / 10. Historical: - Allergies: 08:28 No Known Allergies; iw - Home Meds: 08:28 sertraline 25 mg oral tab 1 tab once daily [Active]; iw - PSHx: 08:28 Cholecystectomy; iw - Immunization history:: Adult Immunizations up to date. - Social history:: Smoking status: Patient reports the use of cigarette tobacco products. ROS: 09:51 Constitutional: Negative for fever, chills, and weight loss, Eyes: Negative for injury, jl9 pain, redness, and discharge, ENT: Negative for injury, pain, and discharge, Neck: Negative for injury, pain, and swelling, Cardiovascular: Negative for chest pain, palpitations, and edema, Respiratory: Negative for shortness of breath, cough, wheezing, and pleuritic chest pain. 09:51 Back: Negative for injury and pain, : Negative for injury, bleeding, discharge, and swelling, MS/Extremity: Negative for injury and deformity, Skin: Negative for injury, rash, and discoloration, Neuro: Negative for headache, weakness, numbness, tingling, and seizure, Psych: Negative for depression, anxiety, suicide ideation, homicidal ideation, and hallucinations, Allergy/Immunology: Negative for hives, rash, and allergies, Endocrine: Negative for neck swelling, polydipsia, polyuria, polyphagia, and marked weight changes, Hematologic/Lymphatic: Negative for swollen nodes, abnormal bleeding, and unusual bruising. 09:51 Abdomen/GI: Positive for nausea, vomiting, and diarrhea, abdominal cramps. Exam: 09:52 Constitutional: This is a well developed, well nourished patient who is awake, alert, jl9 and in no acute distress. Head/Face: Normocephalic, atraumatic. Eyes: Pupils equal round and reactive to light, extra-ocular motions intact. Lids and lashes normal. Conjunctiva and sclera are non-icteric and not injected. Cornea within normal limits. Periorbital areas with no swelling, redness, or edema. ENT: Mucous membranes moist. Neck: Trachea midline, no thyromegaly or masses palpated, and no cervical lymphadenopathy. Supple, full range of motion without nuchal rigidity, or vertebral point tenderness. No Meningismus. Chest/axilla: Normal chest wall appearance and motion. Nontender with no deformity. No lesions are appreciated. Cardiovascular: Regular rate and rhythm with a normal S1 and S2. No gallops, murmurs, or rubs. Normal PMI, no JVD. No pulse deficits. Respiratory: Lungs have equal breath sounds bilaterally, clear to auscultation and percussion. No rales, rhonchi or wheezes noted. No increased work of breathing, no retractions or nasal flaring. 09:52 Back: No spinal tenderness. No costovertebral tenderness. Full range of motion. Skin: Warm, dry with normal turgor. Normal color with no rashes, no lesions, and no evidence of cellulitis. MS/ Extremity: Pulses equal, no cyanosis. Neurovascular intact. Full, normal range of motion. Neuro: Awake and alert, GCS 15, oriented to person, place, time, and situation. Cranial nerves II-XII grossly intact. Motor strength 5/5 in all extremities. Sensory grossly intact. Cerebellar exam normal. Normal gait. Psych: Awake, alert, with orientation to person, place and time. Behavior, mood, and affect are within normal limits. 09:52 Abdomen/GI: Inspection: abdomen appears normal, Bowel sounds: normal, Palpation: voluntary guarding, Rectal exam: Indicators: Vital Signs: 08:27 BP 120 / 84; Pulse 88; Resp 16; Pulse Ox 98% on R/A; Weight 106.59 kg; Height 5 ft. 4 iw in. (162.56 cm); 08:27 Body Mass Index 40.34 (106.59 kg, 162.56 cm) iw MDM: 08:25 Patient medically screened. jl9 09:52 Data reviewed: vital signs, nurses notes, lab test result(s). Counseling: I had a jl9 detailed discussion with the patient and/or guardian regarding: the historical points, exam findings, and any diagnostic results supporting the discharge/admit diagnosis, radiology results, the need for outpatient follow up. 09/23 08:32 Order name: CBC with Diff; Complete Time: 09:48 9 09/23 08:32 Order name: CMP; Complete Time: 09:11 jl9 09/23 08:32 Order name: Lipase; Complete Time: 09:11 9 09/23 08:33 Order name: CT Abd/Pelvis - IV Contrast Only; Complete Time: 09:48 9 09/23 09:30 Order name: Urine Dipstick-Ancillary; Complete Time: 09:48 EDMS 09/23 09:37 Order name: CBC Smear Scan; Complete Time: 09:48 EDMS 09/23 08:32 Order name: IV Saline Lock; Complete Time: 08:49 jl9 09/23 08:32 Order name: Labs collected and sent; Complete Time: 08:49 9 09/23 08:32 Order name: Urine Dipstick-Ancillary (obtain specimen); Complete Time: 09:31 jl9 09/23 08:32 Order name: Urine Test (obtain specimen); Complete Time: 09:31 jl9 Administered Medications: 09:20 Drug: Pepcid (famotidine) 20 mg Route: IVP; Site: left antecubital; 3 09:20 Drug: Zofran (Ondansetron) 4 mg Route: IVP; Site: left antecubital; 3 Disposition: 19:25 Co-signature as Attending Physician, Rob Torres DO I agree with the assessment and ms3 plan of care. Disposition Summary: 09/23/21 09:53 Discharge Ordered Location: Home jl9 Condition: Stable jl9 Diagnosis - Other abdominal pain jl9 Followup: jl9 - With: Private Physician - When: 1 - 2 days - Reason: Recheck today's complaints, Continuance of care, Re-evaluation by your physician Discharge Instructions: - Discharge Summary Sheet jl9 - Abdominal Pain, Adult, [id number] jl9 - Gastroesophageal Reflux Disease, Adult, [id number] jl9 Forms: - Work release form iw - Medication Reconciliation Form jl9 - Thank You Letter jl9 - Antibiotic Education jl9 - Prescription Opioid Use jl9 Prescriptions: - Ibuprofen 600 mg Oral Tablet - take 1 tablet by ORAL route every 6 hours As needed take with food; 30 tablet; jl9 Refills: 0, Product Selection Permitted - Pepcid 20 mg Oral Tablet - take 1 tablet by ORAL route once daily; 20 tablet; Refills: 0, Product jl9 Selection Permitted Signatures: Dispatcher [employer] Yumiko Matthew, RN RN iw Rob Torres DO DO ms3 Lesley Hinkle RN RN eh3 Adam Mauro jl9
--- NOTE | 2021-09-23 09:54 | ER ---
Nurse's Notes [facility] Name: Elin Dubose Age: 30 yrs Sex: Female : 1990 Arrival Date: 09/23/2021 Time: 08:06 Bed 23 Private MD: Diagnosis: Other abdominal pain Presentation: 09/23 08:26 Chief complaint: Patient states: woke up at 3 am vomiting , I feel acid trying to come iw up , also has right flank pain and has diarrhea. Coronavirus screen: Client presents with at least one sign or symptom that may indicate coronavirus-19. Ebola Screen: Patient negative for fever greater than or equal to 101.5 degrees Fahrenheit, and additional compatible Ebola Virus Disease symptoms Patient denies exposure to infectious person. Patient denies travel to an Ebola-affected area in the 21 days before illness onset. No symptoms or risks identified at this time. Risk Assessment: Do you want to hurt yourself or someone else? Patient reports no desire to harm self or others. Onset of symptoms was September 23, 2021. 08:26 Method Of Arrival: Ambulatory iw 08:26 Acuity: SHEILA 3 iw 08:30 Initial Sepsis Screen: Does the patient meet any 2 criteria? No. Patient's initial iw sepsis screen is negative. Does the patient have a suspected source of infection? No. Patient's initial sepsis screen is negative. Historical: - Allergies: 08:28 No Known Allergies; iw - Home Meds: 08:28 sertraline 25 mg oral tab 1 tab once daily [Active]; iw - PSHx: 08:28 Cholecystectomy; iw - Immunization history:: Adult Immunizations up to date. - Social history:: Smoking status: Patient reports the use of cigarette tobacco products. Screenin:33 Abuse screen: Denies threats or abuse. Denies injuries from another. Nutritional iw screening: No deficits noted. Tuberculosis screening: No symptoms or risk factors identified. Fall Risk IV access (20 points). Assessment: 08:32 General: Appears in no apparent distress. Behavior is calm, cooperative. Pain: iw Complains of pain in abdomen. Neuro: Level of Consciousness is awake, alert, obeys commands, Oriented to person, place, time, situation, Moves all extremities. Respiratory: Respiratory effort is even, unlabored, Respiratory pattern is regular. GI: Abdomen is non-distended. GI: Reports diarrhea, nausea, vomiting. Derm: Skin is intact, is healthy with good turgor. Vital Signs: 08:27 BP 120 / 84; Pulse 88; Resp 16; Pulse Ox 98% on R/A; Weight 106.59 kg; Height 5 ft. 4 iw in. (162.56 cm); 08:27 Body Mass Index 40.34 (106.59 kg, 162.56 cm) iw ED Course: 08:06 Patient arrived in ED. rg4 08:10 Adam Mauro is PHCP. jl9 08:10 Rob Torres DO is Attending Physician. jl9 08:27 Triage completed. iw 08:27 Arm band placed on. iw 08:32 Yumiko Saul RN is Primary Nurse. iw 08:41 Initial lab(s) drawn, by me, sent to lab. Inserted saline lock: 20 gauge in left 3 antecubital area, using aseptic technique. Blood collected. 09:33 Patient has correct armband on for positive identification. Placed in gown. Bed in low eh3 position. Call light in reach. Side rails up X 1. Door closed. Noise minimized. Lights dimmed. 09:38 CT Abd/Pelvis - IV Contrast Only In Process Unspecified. EDMS 10:41 No provider procedures requiring assistance completed. IV discontinued, intact, iw bleeding controlled, No redness/swelling at site. Pressure dressing applied. Administered Medications: 09:20 Drug: Pepcid (famotidine) 20 mg Route: IVP; Site: left antecubital; eh3 09:20 Drug: Zofran (Ondansetron) 4 mg Route: IVP; Site: left antecubital; 3 Medication: 08:45 VIS not applicable for this client. iw Outcome: 09:53 Discharge ordered by . [email or web address] 10:42 Discharged to home ambulatory. iw 10:42 Condition: good 10:42 Discharge instructions given to patient, Instructed on discharge instructions, follow up and referral plans. medication usage, Demonstrated understanding of instructions, follow-up care, medications, Prescriptions given X 2. 10:42 Patient left the ED. iw Signatures: Dispatcher [employer] EDMS Yumiko Saul RN RN Bhumi Palomares 4 Merna Harris [facility] Lesley Hinkle RN RN [facility] Adam Mauro jl9 Corrections: (The following items were deleted from the chart) 08:29 08:27 Pulse 88bpm; Resp 16bpm; Pulse Ox 98% RA; iw iw
[2021-09-23 10:53] VITALS: BP 120/84; O2SAT 98
== END 2021-09-23 10:42 | disposition home or self-care (01) ==
LOC: ER 08:03
DX: R10.9 Unspecified abdominal pain (principal); R11.2 Nausea with vomiting, unspecified; Z72.0 Tobacco use
CPT/HCPCS: 85025; 36415; 81003; 83690; 80053; 74177; Q9967; J2405

== ENCOUNTER 2022-06-28 05:38 | Emergency (ER) | payer BC ==
--- OUTSIDE RECORDS SUMMARY | 2022-06-28 05:41 | XMS REPORT | Continuity of Care Document ---
:1990 Author Organization [facility] t Address [address] [place] [address] Care Team Providers Name Role Phone PCP, PATIENT DOES NOT HAVE A Primary Care Physician UnavailSERGIO Juárez Attending Clinician Unavailable ALEX MONTOYA Attending Clinician Unavailable ALEX MONTOYA Admitting Clinician Unavailable Payers Payer Name Policy Type Policy Number Effective Date Expiration Date [facility] [id number] 2015 PPO/POS 00:00:00 [facility] [id number] 2018 [facility] 00:00:00 Problems This patient has no known problems. Allergies, Adverse Reactions, Alerts Allergy Allergy Status Severity Reaction(s) Onset Inactive Treating Comm ents Source Name Type Date Date Clinician NO KNOWN Drug Active [facility] ALLERGIE Class [facility] Medications This patient has no known medications. Procedures This patient has no known procedures. Encounters Start End Encounter Admission Attending Care Care Encounter Source Date/Time Date/Time Type Type Clinicians Facility Department ID 2019-10-29 2019-10-29 Outpatient [facility] [id number] Univers 09:00:00 09:00:00 SERGIO [facility] 2019-08-08 2019-08-08 Outpatient R [facility] [id number] Univers [facility]:00[facility] 2019-08-03 Out[facility] [id number] Univers 15:30:00 15:30:00 SERGIO [facility] 2019-02-12 2019-02-12 Emergency X BARRY MONTOYA ERT [id number] Univers 14:07:19 15:56:[address] [facility] Results This patient has no known results.
--- NOTE | 2022-06-28 06:05 | EDPHYS ---
Physician Documentation [facility] Name: Elin Dubose Age: 31 yrs Sex: Female : 1990 Arrival Date: 06/28/2022 Time: 05:38 Bed 6 Private MD: ED Physician Michael Brar HPI: 06/28 05:56 This 31 yrs old Female presents to ER via Ambulatory with complaints of bs3 Finger swelling. 05:56 Patient presents with left third digit swelling and pain she notes going to a mass on bs3 several weeks ago and feels like she had a hangnail on her third digit she tried to take it out earlier today and it started to swell and then she had increased swelling and it was throbbing and therefore she came in denies fevers chills or anything else bothering her the pain is moderate intensity worse with palpation better with rest. 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 - Social history:: Smoking status: Patient denies any tobacco usage or history of. ROS: 05:56 Constitutional: Negative for fever, chills Eyes: Negative for injury, pain, redness, bs3 and discharge, ENT: Negative for injury, pain, and discharge, Skin: Negative for injury, rash, and discoloration, Neuro: Negative for headache, weakness, numbness, tingling, and seizure, Psych: Negative for depression, anxiety, suicide ideation, homicidal ideation, and hallucinations. 05:56 All other systems are negative. bs3 Exam: 05:56 Constitutional: This is a well developed, well nourished patient who is awake, alert, bs3 and in no acute distress. Head/Face: Normocephalic, atraumatic. Skin: Warm, dry with normal turgor. Normal color with no rashes, no lesions, and no evidence of cellulitis. MS/ Extremity: Her left third digit on the radial aspect of the nail is swollen and tender the swelling extends to the palmar aspect of her distal finger but it is soft Neuro: Awake and alert, GCS 15, oriented to person, place, time, and situation. Cranial nerves II-XII grossly intact. Motor strength 5/5 in all extremities. Sensory grossly intact. Vital Signs: 05:51 BP 156 / 86; Pulse 50; Resp 16; Temp 98.2(TE); Pulse Ox 100% on R/A; Weight 108.86 kg; kd3 Height 5 ft. 4 in. ; 05:51 Body Mass Index 41.20 (108.86 kg, 162.56 cm) kd3 Procedures: 05:56 I \T\ D: Incision and drainage was performed for an abscess of the left Prepped with bs3 chlorhexadine. Anesthetized with nothing. Incised with using a 18g needle bevel, I lifted the eoponycheal fold at the area of most fluctuance, there was sig blood expelled and the pressure the patient experienced was relieved, but no pus. . MDM: 05:44 Patient medically screened. bs3 05:56 Data reviewed: vital signs, nurses notes. bs3 05:56 ED course: pt with paronychia vs ingrown nail causing irritation, I attempted to drain bs3 purulent material but it was only blood, likely this is simply an ingrown nail causing irritaiton, advised warm betadine soaks, will give antibiotics if the swelling increases, return prec given. Administered Medications: No medications were administered Disposition Summary: 06/28/22 06:05 Discharge Ordered Location: Home bs3 Problem: new bs3 Symptoms: have improved bs3 Condition: Stable bs3 Diagnosis - Paronychia bs3 - Elevated blood-pressure reading, without diagnosis of hypertension bs3 Followup: bs3 - With: Private Physician - When: 2 - 3 days - Reason: Re-evaluation by your physician Discharge Instructions: - Discharge Summary Sheet bs3 - Hypertension, Adult bs3 - Paronychia, [id number] bs3 Forms: - Medication Reconciliation Form bs3 - Thank You Letter bs3 - Antibiotic Education bs3 - Prescription Opioid Use bs3 Prescriptions: - Cephalexin 500 mg Oral Capsule - take 1 capsule by ORAL route every 8 hours for 5 days; 15 capsule; Refills: 0, bs3 Product Selection Permitted Signatures: Andrew Bertrand RN RN Francisca Lao RN RN kd3 Michael Brar MD MD bs3 Corrections: (The following items were deleted from the chart) 05:58 05:56 Constitutional: Negative for fever, chills Eyes: Negative for injury, pain, bs3 redness, and discharge, ENT: Negative for injury, pain, and discharge, MS/Extremity: Her left third digit on the radial aspect of the nail is swollen and tender the swelling extends to the palmar aspect of her distal finger but it is soft Skin: Negative for injury, rash, and discoloration, Neuro: Negative for headache, weakness, numbness, tingling, and seizure, Psych: Negative for depression, anxiety, suicide ideation, homicidal ideation, and hallucinations, bs3
--- NOTE | 2022-06-28 06:05 | ER ---
Nurse's Notes [facility] Name: Elin Dubose Age: 31 yrs Sex: Female : 1990 Arrival Date: 06/28/2022 Time: 05:38 Bed 6 Private MD: Diagnosis: Paronychia;Elevated blood-pressure reading, without diagnosis of hypertension Presentation: 06/28 05:51 Chief complaint: Patient states: The middle finger on my left hand started to swell. I kd3 think that i had a hang nail and when i tried to pull it out and i think i just caused an infection. Coronavirus screen: Vaccine status: unknown. Ebola Screen: No symptoms or risks identified at this time. Initial Sepsis Screen: Does the patient meet any 2 criteria? No. Patient's initial sepsis screen is negative. Does the patient have a suspected source of infection? No. Patient's initial sepsis screen is negative. Risk Assessment: Do you want to hurt yourself or someone else? Patient reports no desire to harm self or others. Onset of symptoms was June 28, 2022. 05:51 Method Of Arrival: Ambulatory kd3 05:51 Acuity: SHEILA 4 kd3 Triage Assessment: 05:53 General: Appears uncomfortable, Behavior is calm, cooperative. Pain: Complains of pain kd3 in dorsal aspect of distal phalanx of left middle finger. 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 - Social history:: Smoking status: Patient denies any tobacco usage or history of. Screenin:50 [facility] ED Fall Risk Assessment (Adult) History of falling in the last 3 months, rv including since admission No falls in past 3 months (0 pts). Abuse screen: Denies threats or abuse. Denies injuries from another. Nutritional screening: No deficits noted. Tuberculosis screening: No symptoms or risk factors identified. Assessment: 05:48 General: Appears in no apparent distress. comfortable, Behavior is calm, cooperative. rv Pain: Complains of pain in left hand. Neuro: Level of Consciousness is awake, alert, obeys commands, Oriented to person, place, time, situation. Cardiovascular: Capillary refill < 3 seconds. Respiratory: Airway is patent. GI: No deficits noted. No signs and/or symptoms were reported involving the gastrointestinal system. : No deficits noted. No signs and/or symptoms were reported regarding the genitourinary system. Vital Signs: 05:51 BP 156 / 86; Pulse 50; Resp 16; Temp 98.2(TE); Pulse Ox 100% on R/A; Weight 108.86 kg; kd3 Height 5 ft. 4 in. ; 05:51 Body Mass Index 41.20 (108.86 kg, 162.56 cm) kd3 ED Course: 05:41 Patient arrived in ED. mr 05:44 Michael Brar MD is Attending Physician. bs3 05:50 Patient has correct armband on for positive identification. Bed in low position. Call rv light in reach. Side rails up X 1. Client placed on continuous cardiac and pulse oximetry monitoring. NIBP monitoring applied. 05:50 No provider procedures requiring assistance completed. Patient did not have IV access rv during this emergency room visit. 05:53 Triage completed. kd3 05:53 Arm band placed on right wrist. kd3 Administered Medications: No medications were administered Medication: 06:12 VIS not applicable for this client. rv Outcome: 06:05 Discharge ordered by . bs3 06:11 Discharged to home ambulatory, with family. rv 06:11 Condition: good 06:11 Discharge instructions given to patient, Instructed on discharge instructions, follow up and referral plans. medication usage, Demonstrated understanding of instructions, medications, wound care, Prescriptions given X 1. 06:12 Patient left the ED. rv Signatures: Elodia Gilliam mr Andrew Bertrand, RN RN rv Francisca Lao, RN RN kd3 Michael Brar MD MD bs3
[2022-06-28 06:24] VITALS: BP 156/86; TEMP 98.2; O2SAT 100
== END 2022-06-28 06:12 | disposition home or self-care (01) ==
LOC: ER 05:38
PROC: 0H9GXZZ Drainage of Left Hand Skin, External Approach (ICD-10-PCS; principal; 2022-06-28)
DX: L03.012 Cellulitis of left finger (principal)

== ENCOUNTER 2022-12-17 07:47 | Emergency (ER) | payer OTHER, BC ==
--- OUTSIDE RECORDS SUMMARY | 2022-12-17 07:50 | XMS REPORT | Continuity of Care Document ---
:[address] [facility] t Address [address] [facility] [address] [place] [address] Care Team Providers Name Role Phone PCP, PATIENT DOES NOT HAVE A Primary Care Physician UnavailSERGIO Juárez Attending Clinician Unavailable ALEX MONTOYA Attending Clinician Unavailable ALEX MONTOYA Admitting Clinician Unavailable Payers Payer Name Policy Type Policy Number Effective Date Expiration Date [facility] [id number] 2015 PPO/POS 00:00:00 [facility] [id number] 2018 [facility] 00:00:00 Problems This patient has no known problems. Allergies, Adverse Reactions, Alerts Allergy Allergy Status Severity Reaction(s) Onset Inactive Treating Comm ents Source Name Type Date Date Clinician NO KNOWN Drug Active [facility] ALLERGIE Class [facility] Medications This patient has no known medications. Procedures This patient has no known procedures. Encounters Start End Encounter Admission Attending Care Care Encounter Source Date/Time Date/Time Type Type Clinicians Facility Department ID 2019-10-29 2019-10-29 Outpatient R [facility] [id number] [facility] 09:00:00 09:00:00 SERGIO [facility] 2019-08-08 2019-08-08 Outpatient R [facility] [id number] [facility] 11:00:00 11:00:00 [facility] 2019-08-03 2019-08-03 Outpatient R [facility] [id number] [facility] 15:30:00 15:30:00 SERGIO [facility] 2019-02-12 2019-02-12 Emergency X BARRY MONTOYA ERT [id number] [facility] 14:07:19 15:56:[address] [facility] Results This patient has no known results.
--- NOTE | 2022-12-17 09:03 | RAD REPORT ---
EXAM DESCRIPTION: RAD - Ankle Left 3 View - 12/17/2022 8:45 am CLINICAL HISTORY: PAIN COMPARISON: Foot Left 3 View dated 12/17/2022 FINDINGS: Small bony fragment is seen adjacent to the lateral aspect of the cuboid bone. This could be acute gi jaylin the adjacent soft tissue swelling however advise correlation with clinical point tenderness in th is region. Elsewhere, no evidence of acute fracture or dislocation.
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
[2022-12-17 09:50] VITALS: O2SAT 100
[2022-12-17 09:54] VITALS: BP 139/81; TEMP 97.9
== END 2022-12-17 09:43 | disposition home or self-care (01) ==
LOC: ER 07:47
DX: S92.215A Nondisplaced fracture of cuboid bone of left foot, initial encounter for closed fracture (principal)
CPT/HCPCS: 99283

== ENCOUNTER 2023-07-12 07:43 | Emergency (ER) | payer BC ==
--- OUTSIDE RECORDS SUMMARY | 2023-07-12 07:45 | XMS REPORT | Continuity of Care Document ---
Author Name Unknown Address [address] [place], [place] [id number] [place] [address] [employer] Address [address] [place] [address] Care Team Providers Care Supervisor Mapping Name Role Phone PCP, PATIENT DOES NOT HAVE A Primary Care Physic SERGIO Conroy Attending Clinician Unavailable ALEX MONTOYA Attending Clinician Unavailable ALEX MONTOYA Admitting Clinician Unavailable Payers Payer Name Policy Type Policy Number Effective Date Expirati on Date Source [facility] PPO/POS [id number] 2015 00:00:00 BCBS [facility] [id number] 00:00:00 Allergies, Adverse Reactions, Alerts Allergy Name Allergy Type Status Severity Reaction(s) Onset Date Inactive Date Treating Clinician Comments Source NO KNOWN ALLERGIE S Drug Class Active [facility] Encounters Start Date/Time End Date/Time Encounter Type Admission Type Attending Clinicians Care Facility Care Department Encounter ID Source 2019-10-29 09:00:00 2019-10-29 09:00:00 Outpatient SERGIO MELISSA [facility] [id number] [facility] 2019-08-08 11:00:00 2019-08-08 11:00:00 Outpatient Mario [facility] [id number] [facility] 2019-08-03 15:30:00 2019-08-03 15:30:00 Outpatient SERGIO MELISSA [facility] [id number] [facility] 2019-02-12 14:07:19 2019-02-12 15:56:00 Emergency X ALEX MONTOYA [facility] ERT [id number] [facility]
--- NOTE | 2023-07-12 08:15 | ER ---
Nurse's Notes [facility] Name: Elin Dubose Age: 32 yrs Sex: Female : 1990 Arrival Date: 07/12/2023 Time: 07:43 Bed IW1 Private MD: Diagnosis: Acute pharyngitis, unspecified;Acute upper respiratory infection, unspecified Presentation: 07/11 07:57 Chief complaint: Patient states: she has been having runny nose, cough and congestion ap3 since Tuesday07/10/2023. Coronavirus screen: Client presents with at least one sign or symptom that may indicate coronavirus-19. Ebola Screen: No symptoms or risks identified at this time. Initial Sepsis Screen: Does the patient meet any 2 criteria? No. Patient's initial sepsis screen is negative. Does the patient have a suspected source of infection? No. Patient's initial sepsis screen is negative. Risk Assessment: Do you want to hurt yourself or someone else? Patient reports no desire to harm self or others. Onset of symptoms was July 10, 2023. 07:57 Method Of Arrival: Ambulatory ap3 07:57 Acuity: SHEILA 4 ap3 Triage Assessment: 07:59 General: Appears in no apparent distress. Behavior is calm, cooperative, appropriate ap3 for age, Reports fever for feeling ill for fatigue for. Pain: Denies pain. EENT: Reports pain when swallowing. Neuro: Level of Consciousness is awake, alert, obeys commands, Oriented to person, place, time, situation. Cardiovascular: Patient's skin is warm and dry. Respiratory: Reports cough that is Airway is patent Respiratory effort is even, unlabored, Respiratory pattern is regular, symmetrical. 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 - Infectious Disease History:: Denies. - Social history:: Smoking status: Patient denies any tobacco usage or history of. Screenin:59 [facility] ED Fall Risk Assessment (Adult) History of falling in the last 3 months, ap3 including since admission No falls in past 3 months (0 pts) Confusion or Disorientation No (0 pts) Intoxicated or Sedated No (0 pts) Impaired Gait No (0 pts) Mobility Assist Device Used No (0 pt) Altered Elimination No (0 pt) Score/Fall Risk Level 0 - 2 = Low Risk Oriented to surroundings, Maintained a safe environment, Educated pt \T\ family on fall prevention, incl call for assistance when getting out of bed, Assessed \T\ reinforced patient's understanding of fall precautions, Provided non-skid footwear, Hourly rounding (assess needs \T\ fall precautionary measures) done, Used ambulatory aids as needed (educated on \T\ assisted with), Used gait belt as appropriate. Abuse screen: Denies threats or abuse. Nutritional screening: No deficits noted. Tuberculosis screening: No symptoms or risk factors identified. Assessment: 08:00 EENT: Throat is pink. ap3 08:44 Respiratory: Airway is patent ap3 Vital Signs: 07:57 BP 141 / 83; Pulse 78; Resp 17; Temp 98.1; Pulse Ox 100% ; Weight 108.86 kg; Height 5 ap3 ft. 4 in. ; 07:57 Body Mass Index 41.20 (108.86 kg, 162.56 cm) ap3 ED Course: 07:45 Patient arrived in ED. mg5 07:48 Eldon Lambert MD is Attending Physician. [facility] 07:58 Triage completed. ap3 07:59 Arm band placed on left wrist. ap3 08:00 Patient has correct armband on for positive identification. ap3 08:00 Provided Education on: swab education. ap3 08:08 COVID swab sent to lab. Flu and/or RSV swab sent to lab. Strep swab sent to lab. ap3 08:44 No provider procedures requiring assistance completed. Patient did not have IV access ap3 during this emergency room visit. Administered Medications: 08:43 Drug: AZITHromycin PO 500 mg PO once Route: PO; ap3 08:48 Follow up: Response: Medication administered at discharge. ap3 Medication: 08:00 VIS not applicable for this client. ap3 Outcome: 08:14 Discharge ordered by . [facility] 08:44 Discharged to home ambulatory, ap3 08:44 Condition: good 08:44 Discharge instructions given to patient, Instructed on discharge instructions, follow up and referral plans. medication usage, Demonstrated understanding of instructions, follow-up care, medications, Prescriptions given X 3, 08:48 Patient left the ED. ap3 Signatures: Eldon Lambert MD MD cha Prokisch, Amanda, RN RN ap3 Jimena Schuler mg5
--- NOTE | 2023-07-12 08:15 | EDPHYS ---
Physician Documentation [facility] Name: Elin Dubose Age: 32 yrs Sex: Female : 1990 Arrival Date: 07/12/2023 Time: 07:43 Bed IW1 Private MD: ED Physician Eldon Lambert HPI: 07/11 08:06 This 32 yrs old Female presents to ER via Ambulatory with complaints of Sore saji Throat. 08:06 The patient presents with sore throat. The patient describes throat pain as dry, raw, saji scratchy. Onset: The symptoms/episode began/occurred 2 day(s) ago. Severity of symptoms: At their worst the symptoms were mild, in the emergency department the symptoms are unchanged. Modifying factors: The symptoms are alleviated by nothing, the symptoms are aggravated by swallowing. Associated signs and symptoms: The patient has no apparent associated signs or symptoms. 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 - Infectious Disease History:: Denies. - Social history:: Smoking status: Patient denies any tobacco usage or history of. ROS: 08:08 Constitutional: Negative for fever, chills, and weight loss, Eyes: Negative for injury, saji pain, redness, and discharge, Neck: Negative for injury, pain, and swelling, Cardiovascular: Negative for chest pain, palpitations, and edema, Respiratory: Negative for shortness of breath, cough, wheezing, and pleuritic chest pain, Abdomen/GI: Negative for abdominal pain, nausea, vomiting, diarrhea, and constipation, Back: Negative for injury and pain, : Negative for injury, bleeding, discharge, and swelling, MS/Extremity: Negative for injury and deformity, Skin: Negative for injury, rash, and discoloration, Neuro: Negative for headache, weakness, numbness, tingling, and seizure, Psych: Negative for depression, anxiety, suicide ideation, homicidal ideation, and hallucinations, Allergy/Immunology: Negative for hives, rash, and allergies, Endocrine: Negative for neck swelling, polydipsia, polyuria, polyphagia, and marked weight changes, Hematologic/Lymphatic: Negative for swollen nodes, abnormal bleeding, and unusual bruising, 08:08 ENT: Positive for rhinorrhea, sore throat, Exam: 08:08 Constitutional: This is a well developed, well nourished patient who is awake, alert, saji and in no acute distress. Head/Face: Normocephalic, atraumatic. Eyes: Pupils equal round and reactive to light, extra-ocular motions intact. Lids and lashes normal. Conjunctiva and sclera are non-icteric and not injected. Cornea within normal limits. Periorbital areas with no swelling, redness, or edema. Neck: Trachea midline, no thyromegaly or masses palpated, and no cervical lymphadenopathy. Supple, full range of motion without nuchal rigidity, or vertebral point tenderness. No Meningismus. Chest/axilla: Normal chest wall appearance and motion. Nontender with no deformity. No lesions are appreciated. Cardiovascular: Regular rate and rhythm with a normal S1 and S2. No gallops, murmurs, or rubs. Normal PMI, no JVD. No pulse deficits. Respiratory: Lungs have equal breath sounds bilaterally, clear to auscultation and percussion. No rales, rhonchi or wheezes noted. No increased work of breathing, no retractions or nasal flaring. Abdomen/GI: Soft, non-tender, with normal bowel sounds. No distension or tympany. No guarding or rebound. No evidence of tenderness throughout. Back: No spinal tenderness. No costovertebral tenderness. Full range of motion. Skin: Warm, dry with normal turgor. Normal color with no rashes, no lesions, and no evidence of cellulitis. MS/ Extremity: Pulses equal, no cyanosis. Neurovascular intact. Full, normal range of motion. Neuro: Awake and alert, GCS 15, oriented to person, place, time, and situation. Cranial nerves II-XII grossly intact. Motor strength 5/5 in all extremities. Sensory grossly intact. Cerebellar exam normal. Normal gait. Psych: Awake, alert, with orientation to person, place and time. Behavior, mood, and affect are within normal limits. 08:08 ENT: Posterior pharynx: Airway: normal, no evidence of obstruction, Tonsils: bilaterally enlarged, with erythema, Uvula: normal, midline, non-edematous, no erythema, swelling, is not appreciated, erythema, that is mild, exudate, is not appreciated, peritonsillar mass, is not appreciated, pooling of secretions, is not appreciated, Vital Signs: 07:57 BP 141 / 83; Pulse 78; Resp 17; Temp 98.1; Pulse Ox 100% ; Weight 108.86 kg; Height 5 ap3 ft. 4 in. ; 07:57 Body Mass Index 41.20 (108.86 kg, 162.56 cm) ap3 MDM: 07:48 Patient medically screened. saji 08:10 Differential diagnosis: bronchitis, cocksackie virus, group A strep tonsillitis, saji influenza, laryngitis, peritonsillar abscess chlamydia pharyngitis, pharyngitis, retropharyngeal abcess. Data reviewed: vital signs, nurses notes, lab test result(s). Consideration of Admission/Observation Patient was admitted/placed on observation. Escalation of care including admission/observation considered. I considered the following discharge prescriptions or medication management in the emergency department Medications were administered in the Emergency Department. See MAR. Test considered but Not performed: Labs: no cbc, no comp met. Historians other than the Patient: pt well informed. Care significantly affected by the following chronic conditions: asthma. 07/11 07:49 Order name: Flu [facility] 07/11 07:49 Order name: SARS RAPID [facility] 07/11 07:49 Order name: Strep [facility] 07/11 08:46 Order name: Throat Culture EDMS Administered Medications: 08:43 Drug: AZITHromycin PO 500 mg PO once Route: PO; ap3 08:48 Follow up: Response: Medication administered at discharge. ap3 Disposition Summary: 07/12/23 08:14 Discharge Ordered Notes: Location: Home [facility] Problem: new saji Symptoms: have improved saji Condition: Stable saji Diagnosis - Acute pharyngitis, unspecified saji - Acute upper respiratory infection, unspecified saji Followup: saji - With: Private Physician - When: 2 - 3 days - Reason: Recheck today's complaints, Continuance of care, Re-evaluation by your physician Discharge Instructions: - Discharge Summary Sheet saji - Pharyngitis saji - Sore Throat saji - Upper Respiratory Infection, Adult saji - Pharyngitis, [id number] saji Forms: - Medication Reconciliation Form saji - Antibiotic Education saji - Prescription Opioid Use saji - Patient Portal Instructions [facility] - Leadership Thank You Letter saji - Work release form ap3 Prescriptions: - Heike-D 12 Hour 60-120 mg Oral Tablet Sustained Release 12 hr - take 1 tablet ORAL route every 12 hours As needed; 20 tablet; Refills: 0, [facility] Product Selection Permitted - Tessalon Perles 100 mg Oral capsule - take 2 capsule ORAL route every 8 hours As needed; 30 capsule; Refills: 0, saji Product Selection Permitted - Zithromax 500 mg Oral tablet - take 1 tablet ORAL route once daily for 5 days; 5 tablet; Refills: 0, Product [facility] Selection Permitted Signatures: Dispatcher [employer] Eldon Atkins MD MD cha Prokisch, Amanda RN RN ap3
[2023-07-12] MEDS ORDERED: AZITHROMYCIN 250 MG TAB ONE (08:38)
[2023-07-12 08:42] LABS: SARS-CoV-2 Antigen CONTROL BLUE LINE VIS/BG OK; SARS-CoV-2 Antigen Rapid Res Negative (Negative)
[2023-07-12 09:14] VITALS: BP 141/83; TEMP 98.1; O2SAT 100
== END 2023-07-12 08:48 | disposition home or self-care (01) ==
LOC: ER 07:43
DX: J06.9 Acute upper respiratory infection, unspecified (principal); Z11.52 Encounter for screening for COVID-19
CPT/HCPCS: 36415; 87070; 87081; 87804; 87811; 99283

== ENCOUNTER 2024-02-09 12:05 | Emergency (ER) | payer BC ==
--- OUTSIDE RECORDS SUMMARY | 2024-02-09 12:08 | XMS REPORT | Continuity of Care Document ---
Author Name Unknown Address [address] [place], [place] [id number] [place] [address] thconnect Address [address] [place] [address] Care Team Providers Care Lead Mobile Developer Name Role Phone PCP, PATIENT DOES NOT HAVE A Primary Care Physic SERGIO Conroy Attending Clinician Unavailable ALEX MONTOYA Attending Clinician Unavailable ALEX MONTOYA Admitting Clinician Unavailable Payers Payer Name Policy Type Policy Number Effective Date Expirati on Date Source [facility] PPO/POS [id number] 2015 00:00:[address] [facility] [id number] 2018 00:00:00 Allergies, Adverse Reactions, Alerts Allergy Name Allergy Type Status Severity Reaction(s) Onset Date Inactive Date Treating Clinician Comments Source NO KNOWN ALLERGIE S Drug Class Active [facility] Encounters Start Date/Time End Date/Time Encounter Type Admission Type Attending Clinicians Care Facility Care Department Encounter ID Source 2019-10-29 09:00:00 2019-10-29 09:00:00 Outpatient SERGIO MELISSA [facility] [id number] [facility] 2019-08-08 11:00:00 2019-08-08 11:00:00 Outpatient Mario [facility] [id number] [facility] 2019-08-03 15:30:00 2019-08-03 15:30:00 Outpatient SERGIO MELISSA [facility] [id number] [facility] 2019-02-12 14:07:19 2019-02-12 15:56:00 Emergency X ALEX MONTOYA [facility] ERT [id number] [facility]
[2024-02-09] MEDS ORDERED: GABAPENTIN 300 MG CAP ONE (13:21)
[2024-02-09] MEDS ORDERED: ACETAMINOPHEN 500 MG TAB ONE (13:21)
[2024-02-09] MEDS ORDERED: KETOROLAC 30 MG/ML INJ ONE (13:22)
[2024-02-09] MEDS ORDERED: LIDOCAINE 4% PATCH ONE (13:22)
[2024-02-09] MEDS ORDERED: methocarbamoL 750 MG TAB ONE (13:22)
[2024-02-09 13:30] LABS: Specific Gravity 1.022 (1.005-1.030)
[2024-02-09 13:32] LABS: Specific Gravity 1.022 (1.005-1.030); Urine Bacteria None Seen /HPF (<20); Urine Bilirubin NEGATIVE (Negative); Urine Blood Negative (Negative); Urine Clarity Extremely Turbid (Clear); Urine Color Light-Yellow (Yellow); Urine Culture Reflex Order NOT NEEDED; Urine Glucose NEGATIVE (Negative); Urine Ketones NEGATIVE (Negative); Urine Micro Reflex YN NO BILL MICROSCOPIC; Urine Mucus Slight /HPF (None Seen); Urine Nitrite NEGATIVE (Negative); Urine Protein NEGATIVE (Negative); Urine RBC <5 /HPF (None Seen); Urine Urobilinogen Normal (Normal); Urine WBC <5 /HPF (<5)
--- NOTE | 2024-02-09 14:11 | RAD REPORT ---
EXAMINATION: LUMBAR SPINE MULTIPLE VIEWS CLINICAL INDICATION: Female, 33 years old. low back pain TECHNIQUE: Multiple views of the lumbar spine were obtained. COMPARISON: No prior exam. FINDINGS: For purposes of this dictation, it is assumed that there are 5 lumbar type vertebral bodies. ALIGNMENT: There is normal alignment of the lumbar spine. BONES: Vertebral bodies are normal in height. No aggressive osseous lesions. DISCS: Disc heights are maintained. IMPRESSION: No acute lumbar spine abnormality.
--- NOTE | 2024-02-09 14:14 | EDPHYS ---
Physician Documentation [facility] Name: Elin Dubose Age: 33 yrs Sex: Female : 1990 Arrival Date: 02/09/2024 Time: 12:05 Bed 4 Private MD: ED Physician Ethan Goins HPI: 02/08 12:55 This 33 yrs old Female presents to ER via Ambulatory with complaints of Low ec2 Back Pain. 12:55 Patient arrives today for evaluation of left lower back pain radiating to the left leg. ec2 Patient reports no falls injuries or trauma. Reports that she has been having pain since picking up a heavy object several days ago. Has taken Tylenol 3 as well as gabapentin with some improvement in symptoms.. 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 - Infectious Disease History:: Denies. - Social history:: Smoking status: Patient denies any tobacco usage or history of. ROS: 12:55 Constitutional: as per hpi ec2 Exam: 12:55 Constitutional: GEN: NAD Head: atraumatic Eyes: EOMI Ears: External ears are ec2 normal. CV: regular rate LUNGS: no respiratory distress ABD: non-distended SKIN: no evidence of rashes MSK: no evidence of trauma no C/T/L spine deformities. Positive straight leg raise test on the left side. Vital Signs: 12:26 BP 124 / 90; Pulse 50; Resp 18; Temp 97.2; Pulse Ox 99% on R/A; Weight 112.94 kg; iw Height 5 ft. 4 in. ; Pain 8/10; 12:26 Body Mass Index 42.74 (112.94 kg, 162.56 cm) iw 12:26 Pain Scale: Adult iw MDM: 12:50 Medical Screening Exam initiated ec2 12:55 Data reviewed: vital signs, nurses notes. ED course: Patient arrives today for ec2 evaluation of left lower back pain. Examination yields MSK findings as above. Will obtain L-spine x-ray, treat the patient's pain. Suspect sciatica. Doubt fracture, doubt dislocation.. 14:13 ED course: Lumbar x-ray negative for acute fracture. Will discharge to home, suspect ec2 sciatica given the patient's positive straight leg raise test as well as descriptors. Return precautions given. Instructed follow-up with orthopedic surgeon. Instructed on [id number] medications as well.. 02/08 12:29 Order name: UARonen; Complete Time: 13:42 ec2 02/08 12:29 Order name: Test, Urine; Complete Time: 13:42 ec2 02/08 12:55 Order name: Lumbar Spine (3 Views) XRAY; Complete Time: 14:13 ec2 Administered Medications: 13:39 Drug: Methocarbamol PO 750 mg PO once Route: PO; cm10 14:34 Follow up: Response: No adverse reaction cm10 13:39 Drug: Ketorolac IM 30 mg IM once Route: IM; Site: left gluteus; cm10 14:34 Follow up: Response: No adverse reaction cm10 13:39 Drug: Lidoderm Topical Patch 5 % (700 mg/patch) 1 patches Topical once; leave on for 12 cm10 hours; cover most painful area; may cut into smaller pieces Route: Topical; Site: affected area; 13:39 Drug: Acetaminophen PO 1000 mg PO once Route: PO; cm10 14:34 Follow up: Response: No adverse reaction cm10 13:39 Drug: Gabapentin PO 300 mg PO once Route: PO; cm10 14:34 Follow up: Response: No adverse reaction cm10 Disposition Summary: 02/09/24 14:14 Discharge Ordered Notes: Location: Home ec2 Condition: Stable ec2 Diagnosis - Sciatica, left side ec2 Followup: ec2 - With: Private Physician - When: - Reason: Re-evaluation by your physician Discharge Instructions: - Discharge Summary Sheet ec2 - Sciatica ec2 Forms: - Work release form cm10 - Medication Reconciliation Form ec2 - Antibiotic Education ec2 - Prescription Opioid Use ec2 - Patient Portal Instructions ec2 - Leadership Thank You Letter ec2 Prescriptions: - gabapentin 300 mg Oral capsule - take 1 capsule ORAL route every day at bedtime; 15 capsule; Refills: 0, Product ec2 Selection Permitted - Cyclobenzaprine 10 mg Oral Tablet - take 1 tablet ORAL route every 8 hours As needed; 30 tablet; Refills: 0, ec2 Product Selection Permitted Signatures: Dispatcher [employer] Yumiko Matthew, RN RN iw Sanaz Treadwell RN RN cm10 Ethan Goins MD MD ec2 Corrections: (The following items were deleted from the chart) 12:55 12:55 Lumbar Spine 3 Views+[id number] ordered. YVONNE RUSSELL
--- NOTE | 2024-02-09 14:14 | ER ---
Nurse's Notes [facility] Name: Elin Dubose Age: 33 yrs Sex: Female : 1990 Arrival Date: 02/09/2024 Time: 12:05 Bed 4 Private MD: Diagnosis: Sciatica, left side Presentation: 02/08 12:26 Chief complaint: Patient states: 2 days ago left lower back pain , pain got worse iw yesterday. Coronavirus screen: At this time, the client does not indicate any symptoms associated with coronavirus-19. Ebola Screen: No symptoms or risks identified at this time. Initial Sepsis Screen: Does the patient meet any 2 criteria? No. Patient's initial sepsis screen is negative. Does the patient have a suspected source of infection? No. Patient's initial sepsis screen is negative. Risk Assessment: Do you want to hurt yourself or someone else? Patient reports no desire to harm self or others. Onset of symptoms was February 07, 2024. 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 - Infectious Disease History:: Denies. - Social history:: Smoking status: Patient denies any tobacco usage or history of. Screenin:12 [facility] ED Fall Risk Assessment (Adult) History of falling in the last 3 months, cm10 including since admission No falls in past 3 months (0 pts) Confusion or Disorientation No (0 pts) Intoxicated or Sedated No (0 pts) Impaired Gait No (0 pts) Mobility Assist Device Used No (0 pt) Altered Elimination No (0 pt) Score/Fall Risk Level 0 - 2 = Low Risk Oriented to surroundings, Maintained a safe environment, Hourly rounding (assess needs \T\ fall precautionary measures) done. Abuse screen: Denies threats or abuse. Denies injuries from another. Nutritional screening: No deficits noted. Tuberculosis screening: No symptoms or risk factors identified. Assessment: 13:11 General: Appears in no apparent distress. comfortable, Behavior is calm, cooperative, cm10 appropriate for age. Pain: Complains of pain in left flank Pain radiates to left leg Pain currently is 10 out of 10 on a pain scale. Quality of pain is described as sharp, shooting, stabbing, Pain began 2-3 days ago. Neuro: No deficits noted. Level of Consciousness is awake, alert, obeys commands, Oriented to person, place, time, situation, Appropriate for age. Respiratory: No deficits noted. Airway is patent Respiratory effort is even, unlabored, Respiratory pattern is regular, symmetrical. Musculoskeletal: No deficits noted. Range of motion: intact in all extremities. 14:34 Reassessment: Patient appears in no apparent distress at this time. No changes from cm10 previously documented assessment. Patient and/or family updated on plan of care and expected duration. Pain level reassessed. Patient is alert, oriented x 3, equal unlabored respirations, skin warm/dry/pink. Vital Signs: 12:26 BP 124 / 90; Pulse 50; Resp 18; Temp 97.2; Pulse Ox 99% on R/A; Weight 112.94 kg; iw Height 5 ft. 4 in. ; Pain 8/10; 12:26 Body Mass Index 42.74 (112.94 kg, 162.56 cm) iw 12:26 Pain Scale: Adult iw ED Course: 12:08 Patient arrived in ED. al6 12:09 Ethan Goins MD is Attending Physician. ec2 12:27 Triage completed. iw 12:28 Arm band placed on. iw 12:44 Bran Calhoun, RN is Primary Nurse. bp 13:12 Patient has correct armband on for positive identification. Bed in low position. Call cm10 light in reach. Provided Education on: ER process and procedures.. 13:40 Lumbar Spine (3 Views) XRAY In Process Unspecified. EDMS 14:34 No provider procedures requiring assistance completed. Patient did not have IV access cm10 during this emergency room visit. Administered Medications: 13:39 Drug: Methocarbamol PO 750 mg PO once Route: PO; cm10 14:34 Follow up: Response: No adverse reaction cm10 13:39 Drug: Ketorolac IM 30 mg IM once Route: IM; Site: left gluteus; cm10 14:34 Follow up: Response: No adverse reaction cm10 13:39 Drug: Lidoderm Topical Patch 5 % (700 mg/patch) 1 patches Topical once; leave on for 12 cm10 hours; cover most painful area; may cut into smaller pieces Route: Topical; Site: affected area; 13:39 Drug: Acetaminophen PO 1000 mg PO once Route: PO; cm10 14:34 Follow up: Response: No adverse reaction cm10 13:39 Drug: Gabapentin PO 300 mg PO once Route: PO; cm10 14:34 Follow up: Response: No adverse reaction cm10 Medication: 13:12 VIS not applicable for this client. cm10 Outcome: 14:14 Discharge ordered by . ec2 14:34 Discharged to home ambulatory, with family, cm10 14:34 Condition: good 14:34 Discharge instructions given to patient, Instructed on discharge instructions, follow up and referral plans. medication usage, Demonstrated understanding of instructions, follow-up care, medications, Prescriptions given X 2, 14:35 Patient left the ED. cm10 Signatures: Dispatcher [employer] Yumiko Matthew RN RN iw Bran Calhoun RN RN bp Martinez, Clarissa, RN RN cm10 Ethan Goins MD MD ec2 Judith [email or web address] Corrections: (The following items were deleted from the chart) 12:27 12:26 Resp 18bpm; Pulse Ox 99% RA; Temp 97.2F; iw iw
[2024-02-09 14:52] VITALS: BP 124/90; TEMP 97.2; O2SAT 99
== END 2024-02-09 14:35 | disposition home or self-care (01) ==
LOC: ER 12:05
DX: M54.42 Lumbago with sciatica, left side (principal)
CPT/HCPCS: 81001; 81025; 72100; 96372; 99284; J2003

== ENCOUNTER 2024-11-21 23:36 | Emergency (ER) | payer BC ==
--- OUTSIDE RECORDS SUMMARY | 2024-11-21 23:39 | XMS REPORT | Continuity of Care Document ---
Author Name Unknown Address [address] [place] [address] [facility] Address 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 Phone PCP, PATIENT DOES NOT HAVE A Primary Care Physic SERGIO Conroy Attending Clinician Unavailable ALEX MONTOYA Attending Clinician Unavailable ALEX MONTOYA Admitting Clinician Unavailable Payers Payer Name Policy Type Policy Number Effective Date Expirati on Date Source [facility] PPO/POS [id number] 00:00:00 [facility] [id number] 2018 00:00:00 Allergies, Adverse Reactions, Alerts Allergy Name Allergy Type Status Severity Reaction(s) Onset Date Inactive Date Treating Clinician Comments Source NO KNOWN ALLERGIE S Drug Class Active [facility] Encounters Start Date/Time End Date/Time Encounter Type Admission Type Attending Clinicians Care Facility Care Department Encounter ID Source 2024-03-06 13:43:01 Outpatient Vicente Aguilar [facility] [id number] [place] [facility] 2019-10-29 09:00:00 2019-10-29 09:00:00 Outpatient SERGIO MELISSA [facility] [id number] [facility] 2019-08-08 11:00:00 2019-08-08 11:00:00 Outpatient Mario [facility] [id number] [facility] 2019-08-03 15:30:00 2019-08-03 15:30:00 Outpatient SERGIO MELISSA [facility] [id number] [facility] 2019-02-12 14:07:19 2019-02-12 15:56:00 Emergency X ALEX MONTOYA [facility] ERT [id number] [facility]
[2024-11-22] MEDS ORDERED: IBUPROFEN 400 MG TAB ONE (00:01)
--- NOTE | 2024-11-22 00:53 | ER ---
Nurse's Notes [facility] Name: Elin Dubose Age: 33 yrs Sex: Female : 1990 Arrival Date: 11/21/2024 Time: 23:36 Bed 6 Private MD: Diagnosis: Sprain of ankle-left Presentation: 11/21 23:53 Chief complaint: Patient states: Dog tripped me 2 days ago and now my left foot is vc1 hurting really bad starting at my ankle and wrapping around to the back. Coronavirus screen: Client denies travel out of the [place] in the last 14 days. At this time, the client does not indicate any symptoms associated with coronavirus-19. Ebola Screen: Patient negative for fever greater than or equal to 101.5 degrees Fahrenheit, and additional compatible Ebola Virus Disease symptoms Patient denies exposure to infectious person. Patient denies travel to an Ebola-affected area in the 21 days before illness onset. No symptoms or risks identified at this time. Initial Sepsis Screen: Does the patient meet any 2 criteria? No. Patient's initial sepsis screen is negative. Does the patient have a suspected source of infection? No. Patient's initial sepsis screen is negative. Risk Assessment: Do you want to hurt yourself or someone else? Patient reports no desire to harm self or others. Onset of symptoms was November 19, 2024. 23:53 Method Of Arrival: Ambulatory vc1 23:53 Acuity: SHEILA 4 vc1 Triage Assessment: 23:49 General: Appears in no apparent distress. comfortable, Behavior is calm, cooperative, bm8 appropriate for age. Pain: Complains of pain in left foot Pain currently is 7 out of 10 on a pain scale. EENT: No deficits noted. No signs and/or symptoms were reported regarding the EENT system. Neuro: No deficits noted. Level of Consciousness is awake, alert, obeys commands, Oriented to person, place, time, situation, Appropriate for age. Cardiovascular: No deficits noted. Denies chest pain, Capillary refill < 3 seconds in bilateral fingers Patient's skin is warm and dry. Respiratory: Airway is patent Respiratory effort is even, unlabored, Respiratory pattern is regular, symmetrical. GI: No deficits noted. No signs and/or symptoms were reported involving the gastrointestinal system. : No deficits noted. No signs and/or symptoms were reported regarding the genitourinary system. Derm: No deficits noted. No signs and/or symptoms reported regarding the dermatologic system. Musculoskeletal: Circulation, motion, and sensation intact. Capillary refill < 3 seconds, in bilateral fingers. Reports pain in left foot Pain is 7 out of 10 on a pain scale. 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 - Infectious Disease History:: Denies. - Social history:: Smoking status: Patient denies any tobacco usage or history of. Screenin:52 [facility] ED Fall Risk Assessment (Adult) History of falling in the last 3 months, nh2 including since admission Yes- single mechanical fall (1 pt) Confusion or Disorientation No (0 pts) Intoxicated or Sedated No (0 pts) Impaired Gait No (0 pts) Mobility Assist Device Used No (0 pt) Altered Elimination No (0 pt) Score/Fall Risk Level 0 - 2 = Low Risk Oriented to surroundings, Maintained a safe environment, Educated pt \T\ family on fall prevention, incl call for assistance when getting out of bed, Assessed \T\ reinforced patient's understanding of fall precautions. Abuse screen: Denies threats or abuse. Denies injuries from another. Nutritional screening: No deficits noted. Tuberculosis screening: No symptoms or risk factors identified. Assessment: 11/22 00:01 Reassessment: see triage assessment. bm8 00:27 Reassessment: Patient and/or family updated on plan of care and expected duration. Pain nh2 level reassessed. Patient is alert, oriented x 3, equal unlabored respirations, skin warm/dry/pink. Patient states feeling better. laying in bed with left leg elevated. tolerating ice pack well. 00:30 Reassessment: x-ray at bedside. nh2 01:02 Reassessment: Patient appears in no apparent distress at this time. Patient and/or bm8 family updated on plan of care and expected duration. Pain level reassessed. Patient is alert, oriented x 3, equal unlabored respirations, skin warm/dry/pink. Patient denies pain at this time. Patient states feeling better. Vital Signs: 11/21 23:53 BP 167 / 89; Pulse 76; Resp 16; Temp 96.9; Pulse Ox 100% ; Weight 108.86 kg; Height 5 vc1 ft. 4 in. ; Pain 7/10; 11/22 00:23 BP 129 / 75; Pulse 71; Resp 18; Temp 97(TE); Pulse Ox 100% ; nh2 01:00 BP 130 / 77; Pulse 61; Resp 18; Temp 97.8(TE); Pulse Ox 100% ; nh2 11/21 23:53 Body Mass Index 41.20 (108.86 kg, 162.56 cm) vc1 11/21 23:53 Pain Scale: Adult vc1 [place] Coma Score: 00:01 Eye Response: spontaneous(4). Motor Response: obeys commands(6). Verbal Response: bm8 oriented(5). Total: 15. ED Course: 11/21 23:39 Patient arrived in ED. gm2 23:40 Eldon Smith PA-C is PHCP. cp 23:40 Jason Silver DO is Attending Physician. cp 23:49 Stuart Jones, TANESHA is Primary Nurse. bm8 23:49 Arm band placed on right wrist. bm8 23:52 Patient has correct armband on for positive identification. Bed in low position. Call nh2 light in reach. Side rails up X 1. Provided Education on: using call light for assistance. 23:55 Triage completed. vc1 11/22 00:01 Client placed on continuous cardiac and pulse oximetry monitoring. NIBP monitoring bm8 applied. Pulse ox on. NIBP on. Door closed. Noise minimized. Ice pack to injury. Verbal reassurance given. Head of bed elevated. 00:01 No provider procedures requiring assistance completed. Patient did not have IV access bm8 during this emergency room visit. Patient maintains SpO2 saturation greater than 95% on room air. 00:37 XRAY Ankle LEFT 3 view In Process Unspecified. EDMS 00:52 Rob aCrolina MD is Referral Physician. cp 00:58 Crutch training done. Ortho shoe applied to left foot. nh2 Administered Medications: 00:01 Drug: Ibuprofen PO 800 mg PO once; may give if not Route: PO; bm8 00:23 Follow up: Response: No adverse reaction nh2 Medication: 11/21 23:56 VIS not applicable for this client. vc1 Outcome: 11/22 00:53 Discharge ordered by . cp 01:02 Discharged to home ambulatory, bm8 01:02 Condition: stable 01:02 Instructed on discharge instructions, follow up and referral plans. no drinking with medication, no driving heavy equipment, medication usage, Demonstrated understanding of instructions, follow-up care, medications, 01:04 Discharge instructions given to patient, Prescriptions given X 1, bm8 01:06 Patient left the ED. nh2 Signatures: Dispatcher [employer] EDMS Eldon Smith PA-C PA-C cp Calcote, Vanessa, RN RN vc1 Eveline Henry 2 Stuart Jones RN RN bm8 Tevin Pierce Jr RN RN nh2 Corrections: (The following items were deleted from the chart) 00:28 00:23 BP 129 / 75; Pulse 71bpm; Resp 18bpm; Pulse Ox 100%; nh2 nh2
--- NOTE | 2024-11-22 00:53 | EDPHYS ---
Physician Documentation [facility] Name: Elin Dubose Age: 33 yrs Sex: Female : 1990 Arrival Date: 11/21/2024 Time: 23:36 Bed 6 Private MD: ED Physician Jason Silver HPI: 11/22 00:05 This 33 yrs old Female presents to ER via Ambulatory with complaints of Ankle Injury. cp 00:05 The patient presents with an injury, pain, that is acute. The complaints affect the cp left ankle. 00:05 Onset: The symptoms/episode began/occurred 2 day(s) ago. cp 00:05 Context: trip over dog while walking. Associated signs and symptoms: The patient has no cp apparent associated signs or symptoms. Severity of symptoms: in the emergency department the symptoms are unchanged, despite home interventions. 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 - Infectious Disease History:: Denies. - Social history:: Smoking status: Patient denies any tobacco usage or history of. ROS: 11/22 00:10 MS/extremity: Positive for pain, tenderness, of the left ankle, painful ROM, Negative cp for decreased range of motion, deformity, paresthesias, 00:10 Neck: Negative for pain with movement, pain at rest, cp 00:10 Back: Negative for pain at rest, pain with movement, 00:10 Neuro: Negative for headache, numbness, weakness, 00:10 All other systems are negative, Exam: 00:15 Constitutional: The patient appears in no acute distress, alert, awake, well developed, cp well nourished, obese, 00:15 Head/Face: Normocephalic, atraumatic. cp 00:15 Chest/axilla: Inspection: normal, 00:15 Cardiovascular: Rate: normal, 00:15 Respiratory: the patient does not display signs of respiratory distress, 00:15 Abdomen/GI: Inspection: abdomen appears normal, 00:15 Back: pain, is absent, ROM is normal, 00:15 Musculoskeletal/extremity: Extremities: noted in the left ankle: pain, tenderness and pain posterior lateral and posterior ankle. Achilles tendon intact, pain with passive ROM. No pain to palpation lateral foot and proximal fibula, Perfusion: the extremity is normally perfused throughout, the left foot and left ankle Sensation intact. 00:15 Neuro: Orientation: to person, place \T\ time. Mentation: is normal, Motor: moves all fours, strength is normal, Sensation: is normal, Vital Signs: 11/21 23:53 BP 167 / 89; Pulse 76; Resp 16; Temp 96.9; Pulse Ox 100% ; Weight 108.86 kg; Height 5 vc1 ft. 4 in. ; Pain 08/16; 11/22 00:23 BP 129 / 75; Pulse 71; Resp 18; Temp 97(TE); Pulse Ox 100% ; nh2 01:00 BP 130 / 77; Pulse 61; Resp 18; Temp 97.8(TE); Pulse Ox 100% ; nh2 11/21 23:53 Body Mass Index 41.20 (108.86 kg, 162.56 cm) vc1 11/21 23:53 Pain Scale: Adult vc1 [place] Coma Score: 00:01 Eye Response: spontaneous(4). Motor Response: obeys commands(6). Verbal Response: bm8 oriented(5). Total: 15. MDM: 11/21 23:45 Medical Screening Exam initiated cp 11/21 23:58 Order name: XRAY Ankle LEFT 3 view cp 11/21 23:58 Order name: Ice pack; Complete Time: 00:01 cp 11/22 00:45 Order name: Walking boot; Complete Time: 00:56 cp Administered Medications: 11/22 00:01 Drug: Ibuprofen PO 800 mg PO once; may give if not Route: PO; bm8 00:23 Follow up: Response: No adverse reaction nh2 Disposition: 01:09 Co-signature as Attending Physician, Jason Silver DO I reviewed the patient's care tt7 provided by the Advanced Practice Provider and agree with the diagnosis and treatment plan. Disposition Summary: 11/22/24 00:53 Discharge Ordered Notes: Location: Home cp Problem: new cp Symptoms: have improved cp Condition: Stable cp Diagnosis - Sprain of ankle - left cp Followup: cp - With: Rob Carolina MD - When: 5 - 6 days - Reason: Recheck today's complaints Discharge Instructions: - Discharge Summary Sheet cp - Ankle Sprain cp - RICE Therapy for Routine Care of Injuries cp - Walking Boot, Adult cp Forms: - Medication Reconciliation Form cp - Antibiotic Education cp - Prescription Opioid Use cp - Patient Portal Instructions cp - Leadership Thank You Letter cp - Work release form nh2 Prescriptions: - Anaprox DS 550 mg Oral Tablet - take 1 tablet ORAL route every 12 hours As needed; 20 tablet; Refills: 0, cp Product Selection Permitted Addendum: 11/23/2024 01:07 Addendum: MDM: Xrays of left ankle reviewed and negative for fracture. Patient placed c p in walking boot for comfort and support. Was discharged to home for continued monitoring and recommend Ortho follow-up if pain persist over the next 5-7 days. Signatures: Dispatcher [employer] EDMS Eldon Smith PA-C PA-C cp Calcote, Vanessa RN RN vc1 Stuart Jones RN RN bm8 Jason iSlver DO DO tt7 Tevin Pierce Jr, RN nh2
[2024-11-22 01:42] VITALS: O2SAT 100
[2024-11-22 01:44] VITALS: BP 130/77; TEMP 97.8
--- NOTE | 2024-11-22 06:35 | RAD REPORT ---
EXAMINATION: XR Ankle Left 3 View CLINICAL INDICATION: Female, 33 years old. [facility] MAIN PAIN Bed Name: 6 TECHNIQUE: 3 view radiographs of the left ankle were obtained. COMPARISON: 12/17/2022. FINDINGS: No acute bone or joint abnormality seen. Stable crescentic osseous density adjacent to the cuboid, which may represent an accessory ossicle. IMPRESSION: No acute or significant abnormalities.
== END 2024-11-22 01:06 | disposition home or self-care (01) ==
LOC: ER 23:36
DX: S93.402A Sprain of unspecified ligament of left ankle, initial encounter (principal); W01.0XXA Fall on same level from slipping, tripping and stumbling without subsequent striking against object, initial encounter
CPT/HCPCS: 99284